=== PATIENT | male | born 1990 | race Caucasian/White ===

== ENCOUNTER 2023-08-11 16:10 | Emergency (ER) | payer OTHER, SELFPAY ==
[2023-08-11 16:14] VITALS: BP 119/80; PULSE 100; RESP 18; TEMP 36.6; O2SAT 100; BMI 19.0
--- NOTE | 2023-08-11 16:27 | ED.ABDPAIN ---
HPI - Abdominal Pain General Time Seen by Provider: 16:28 Date Seen: 08/11/23 Chief Complaint: Abdominal Pain Stated Complaint: Lower bowel obstruction-had before Time Seen by Provider: 08/11/23 16:22 Source: patient and RN notes reviewed Mode of arrival: ambulatory Limitations: no limitations History of Present Illness HPI narrative: This 33-year-old male is ambulatory into the ED with concern of a recurrent bowel obstruction. He about 2 weeks ago had severe sudden onset left lower quadrant pain that almost dropped him to his knees. He has had some intermittent pain in the last 2 weeks. Since about Saturday night now, has had more dull pain that is in the left lower quadrant. Last bowel movement was yesterday, had 2 bowel movements which is not typical. Passing minimal flatus. Has been more on a clear liquid diet today, no nausea or vomiting. He has been able to eat and drink, has more forced himself to do so as he was feeling weak/lightheaded. [place] more bloated yesterday, has noted active bowel sounds. He has had a history of recurrent bowel obstructions, did end up having an exploratory laparoscopy on 08/23/2016. This was done for history of 4 prior episodes of recurrent bowel obstructions. They did the lysis of adhesions and incidental appendectomy. He had prominent peritoneal folds associated with peritoneum with medial umbilical ligament/obliterated umbilical arteries. He does not feel he needs anything for pain management at this time. Is thinking he does need CT imaging. MD elicited complaint: abdominal pain Related Data Home Medications Medication Instructions Recorded Confirmed No Known Home Medications 08/11/23 08/11/23 Allergies Allergy/AdvReac Type Severity Reaction Status Date / Time No Known Drug Allergies Allergy Verified 07/11/23 17:30 PFSH [facility] Social History Smoking Status: Never smoker Do you use any of these nicotine containing products: None How often do you have a drink containing alcohol: monthly or less AUDIT-C Alcohol total score: 1 Non-prescribed substance use: denies use Exam Const: Vital Signs, click to edit/add: Vital Signs - 24 hr 08/11/23 16:14 Temperature 97.8 F Pulse Rate [Right Pulse Oximeter] 100 Respiratory Rate 18 Blood Pressure [Ri ght Upper Arm] 119/80 Pulse Oximetry 100 Oxygen Delivery Me thod Room Air [place] is alert, interactive, no apparent distress. Very pleasant 33-year-old male. Ambulatory in the ER of his own accord, very slender frame. Sclera clear, symmetrical facial function, speech normal. Lungs clear, good air entry, no wheezing or crackles. CV regular, slightly fast come no murmur, normal S1-S2, no S3-S4. Abdomen is flat, nondistended, initially had almost what sounded like a tatum of bowel sounds briefly when I 1st but the stethoscope on but then really hypoactive bowel sounds after that. Abdomen is actually tender just right of suprapubic area, no masses noted, no rebound or guarding, nontender elsewhere. Documenting provider has reviewed patient's vital signs: yes Course Course ED Course: Will obtain IV access, get CT abdomen pelvis with IV contrast. Will get full complement of labs including urine. This certainly could be recurrent bowel obstruction, consideration for bili is/gastroenteritis, other abdominal etiologies which will be further elucidated by labs and CT imaging. Reevaluation(s) Time of Reevaluation #1: 17:42 Reevaluation #1: Up did check on him, he still does not need anything for pain. Reviewed his labs are normal. We are waiting the radiology over-read of his CT. I question area of bowel that is lower in the abdomen but really need to await the radiologist's over-read. Time of Reevaluation #2: 18:23 Reevaluation #2: Reviewed normal CT report with patient, provided him a copy. At this point, we will finish IV fluids and discharge for ongoing outpatient observation. We discussed return if he has increasing abdominal pain, is not having stool and flatus past within the next 24 hours or if he develops vomiting. Vital Signs Vital signs: Initial Vital Signs Temperature 97.8 F 08/11/23 16:14 Temperature Source Temporal Artery Scan 08/11/23 16:14 Pulse Rate 100 08/11/23 16:14 Respiratory Rate 18 08/11/23 16:14 Blood Pressure 119/80 08/11/23 16:14 Blood Pressure Mean 93 08/11/23 16:14 Blood Pressure Position Sitting 08/11/23 16:14 Pulse Oximetry 100 08/11/23 16:14 Oxygen Delivery Method Room Air 08/11/23 16:14 Vital Signs Temperature 97.8 F 08/11/23 16:14 Pulse Rate 100 08/11/23 16:14 Respiratory Rate 18 08/11/23 16:14 Blood Pressure 119/80 08/11/23 16:14 Pulse Oximetry 100 08/11/23 16:14 Oxygen Delivery Method Room Air 08/11/23 16:14 Temperature 97.8 F 08/11/23 16:14 Pulse Rate 100 08/11/23 16:14 Respiratory Rate 18 08/11/23 16:14 Blood Pressure 119/80 08/11/23 16:14 Pulse Oximetry 100 08/11/23 16:14 Oxygen Delivery Method Room Air 08/11/23 16:14 Medications Administered Medications: Discontinued Medications Generic Name Dose Route Start Last Admin Trade Name Freq PRN Reason Stop Dose Admin Sodium Chloride 1,000 mls @ 500 mls/hr 08/11/23 16:42 08/11/23 19:00 0.9 % Sodium Chloride 1000 Ml IV 08/11/23 18:41 Infused .Q2H RENEA Infusion MDM - Abdominal Pain Lab Data Attestation: I reviewed the patient's lab results. Labs: Lab Results 08/11/23 08/11/23 Range/Units 16:49 16:58 WBC 5.88 (4.50-11.00) K/uL RBC 5.76 (4.30-5.90) m/uL Hgb 16.3 (13.5-17.5) gm/dL Hct 49.2 (37.0-53.0) % MCV 85 (80-100) fL MCH 28 (26-34) pg MCHC 33 (32-36) gm/dL RDW Coeff of Ga 12.8 (11.5-15.5) % Plt Count 240 (140-440) K/uL Neut % (Auto) 53.1 (42.0-72.0) % Lymph % (Auto) 36.4 (20-44) % [place] % (Auto) 9.0 (0.0-11.0) % Eos % (Auto) 0.3 (0.0-7.0) % Baso % (Auto) 0.5 (0.0-3.0) % Neut # (Auto) 3.12 (1.7-7.0) K/uL Lymph # (Auto) 2.14 (0.90-2.90) K/uL [place] # (Auto) 0.50 (0.00-0.90) K/UL Eos # (Auto) 0.02 (0.00-0.50) K/uL Baso # (Auto) 0.03 (0.00-0.30) K/uL Abs Immat Gran (auto) 0.04 (0.00-0.30) K/uL Imm/Tot Granulo (auto) 0.7 % Sodium 138 (135-149) mmol/L Potassium 4.1 (3.6-5.1) mmol/L Chloride 102 (96-114) mmol/L Carbon Dioxide 27 (20-32) mmol/L Anion Gap 9 (7-15) mEq/L BUN 18 (5-24) mg/dL Creatinine 1.1 (0.5-1.5) mg/dL Estimated Creat Clear 87.40 Estimated GFR 92 ml/min Glucose 99 (60-115) mg/dL Lactate 0.9 (0.5-1.9) mmol/L Calcium 9.4 (8.4-10.6) mg/dL Total Bilirubin 0.5 (0.1-1.5) mg/dL AST 27 (12-35) U/L ALT 24 (4-50) U/L Alkaline Phosphatase 63 (40-150) U/L C-Reactive Protein < 0.5 L (0.5-1.0) mg/dL Total Protein 8.0 (6.0-8.3) g/dL Albumin 4.8 (3.3-5.0) g/dL Urine Color Yellow (Yellow) Urine Appearance Clear (Clear) Urine pH 7.0 (5.0-8.5) Ur Specific [place] 1.020 (1.000-1.030) Urine Protein Negative (Negative) Urine Glucose (UA) Negative (Negative) Urine Ketones Negative (Negative) Urine Blood Negative (Negative) Urine Nitrite Negative (Negative) Urine Bilirubin Negative (Negative) Urine Urobilinogen 0.2 (0.2-1.0) Ur Leukocyte Esterase Negative (Negative) Urine RBC 0-2 (0-2) Urine WBC 0-2 (0-5) Ur Squamous Epith Cells Few (None-Few) Urine Bacteria None (None) Imaging Data CT scan - abdomen: Attestation: I have reviewed the pertinent imaging results. Radiologist's impression: Patient: JAGDISH BAHENA Facility:?[facility] Patient ID:?[id number] Site Patient ID:?[id number]. Site :?[id number] Study:?CT Abdomen/Pelvis w/ 69cc [id number] 5:47:16 PM Ordering Physician:Bhargav Lee Final Report: INDICATION: Left lower quadrant pain. History of bowel obstruction. TECHNIQUE: CT abdomen and pelvis acquired with 69 cc Isovue 370 IV contrast. COMPARISON: 08/23/2016 and 05/29/2014. FINDINGS: Lower chest: Unremarkable. Liver: Unremarkable. Normal in size and attenuation. No suspicious masses. Gallbladder and bile ducts: Unremarkable. No stones or inflammation. No biliary dilatation. Pancreas: Unremarkable. No mass or inflammation. Spleen: Unremarkable. Normal in size. No masses. Adrenal glands: Unremarkable. No nodules. Kidneys: Unremarkable. No suspicious masses, stones, or hydronephrosis. GI tract: Nondilated bowel. No bowel wall thickening. No acute inflammation. A linear hyper attenuating focus consistent with suture material is seen along the apex of the cecum consistent with a prior appendectomy. Please correlate with the patient`s clinical history. Vasculature: Abdominal aorta is normal in caliber. Mesenteric arteries are patent. Lymph nodes: No lymphadenopathy. Peritoneum/Abdominal Wall: Unremarkable. No sign of mass or infiltration. No free air or significant free fluid. Pelvis: Unremarkable. Bones: Unremarkable for age. Incidental unchanged bone islands in the left innominate bone and left femoral head. IMPRESSION: No acute findings. Please note that all CT scans at this facility use dose modulation, iterative reconstruction, and/or weight-based dosing when appropriate to reduce radiation dose to as low as reasonably achievable. Dictated by Nas Feng MD @ 08/11/2023 5:53:24 PM (Electronic Signature) Discharge Plan Discharge Clinical Impression: Abdominal pain Patient Disposition: Home, Self-Care Condition: Stable Instructions: Acute Abdominal Pain (ED) Additional Instructions: Resume normal diet and drink adequate fluids. If you are experiencing increasing abdominal pain, if it is associated with fever or vomiting, if you are not passing gas or stool within the next 24 hours, do recommend re-evaluation. CT imaging and labs were all normal here today. Activity Level: Activity as Tolerated Discharge Diet: Regular Prescriptions: No Action No Known Home Medications Follow Up/Referrals: Jaciel Hwang MD [Primary Care Provider] - Stand Alone Forms: [place] Info Instructions
--- NOTE | 2023-08-11 16:35 | CRLHL7_ITS ---
For Patients: As a result of the Century Cures Act, medical imaging exams and procedure reports are released immediately into your electronic medical record. You may view this report before your referring provider. If you have questions, please contact your health care provider. INDICATION: Left lower quadrant pain. History of bowel obstruction. TECHNIQUE: CT abdomen and pelvis acquired with 69 cc Isovue 370 IV contrast. COMPARISON: 08/23/2016 and 05/29/2014. FINDINGS: Lower chest: Unremarkable. Liver: Unremarkable. Normal in size and attenuation. No suspicious masses. Gallbladder and bile ducts: Unremarkable. No stones or inflammation. No biliary dilatation. Pancreas: Unremarkable. No mass or inflammation. Spleen: Unremarkable. Normal in size. No masses. Adrenal glands: Unremarkable. No nodules. Kidneys: Unremarkable. No suspicious masses, stones, or hydronephrosis. GI tract: Nondilated bowel. No bowel wall thickening. No acute inflammation. A linear hyper attenuating focus consistent with suture material is seen along the apex of the cecum consistent with a prior appendectomy. Please correlate with the patient`s clinical history. Vasculature: Abdominal aorta is normal in caliber. Mesenteric arteries are patent. Lymph nodes: No lymphadenopathy. Peritoneum/Abdominal Wall: Unremarkable. No sign of mass or infiltration. No free air or significant free fluid. Pelvis: Unremarkable. Bones: Unremarkable for age. Incidental unchanged bone islands in the left innominate bone and left femoral head. IMPRESSION: No acute findings. Please note that all CT scans at this facility use dose modulation, iterative reconstruction, and/or weight-based dosing when appropriate to reduce radiation dose to as low as reasonably achievable. Dictated by Nas Feng MD @ 08/11/2023 5:53:24 PM (Electronically Signed)
[2023-08-11 16:54] LABS: Appearance Urine Clear (Clear); Bilirubin Urine Negative (Negative); Blood Urine Negative (Negative); Color Urine Yellow (Yellow); Glucose Urine Negative (Negative); Ketones Urine Negative (Negative); Leukocyte Esterase Urine Negative (Negative); Nitrite Urine Negative (Negative); Protein Urine Negative (Negative); Urobilinogen Urine 0.2 (0.2-1.0)
[2023-08-11 17:02] LABS: RBC Urine 0-2 (0-2); Squamous Epithelial Cell Urine Few (None-Few); WBC Urine 0-2 (0-5)
[2023-08-11 17:08] LABS: Lactate* 0.9 mmol/L (0.5-1.9)
[2023-08-11 17:09] LABS: Basophils Absolute Auto 0.03 K/uL (0.00-0.30); Basophils Percent Auto 0.5 % (0.0-3.0); Eosinophils Absolute Auto 0.02 K/uL (0.00-0.50); Eosinophils Percent Auto 0.3 % (0.0-7.0); Hematocrit 49.2 % (37.0-53.0); Hemoglobin* 16.3 gm/dL (13.5-17.5); Immature Granulocytes Abs Auto 0.04 K/uL (0.00-0.30); Immature Granulocytes Pct Auto 0.7 %; Lymphocytes Absolute Auto 2.14 K/uL (0.90-2.90); Lymphocytes Percent Auto 36.4 % (20-44); Mean Corpuscular HGB Conc 33 gm/dL (32-36); Mean Corpuscular Hemoglobin 28 pg (26-34); Mean Corpuscular Volume 85 fL (80-100); Neutrophils Absolute Auto 3.12 K/uL (1.7-7.0); Neutrophils Percent Auto 53.1 % (42.0-72.0); Platelet Count* 240 K/uL (140-440); RDW Coefficient of Variation % 12.8 % (11.5-15.5); Red Blood Count 5.76 m/uL (4.30-5.90); White Blood Count* 5.88 K/uL (4.50-11.00)
[2023-08-11] MEDS: 0.9 % SODIUM CHLORIDE 1000 ml 1,000 ML 500 ML IV (17:09)
[2023-08-11 17:14] LABS: Slide Review Reflex No
[2023-08-11 17:23] LABS: Albumin* 4.8 g/dL (3.3-5.0); Chloride* 102 mmol/L (96-114); Sodium* 138 mmol/L (135-149)
[2023-08-11 17:26] LABS: Alkaline Phosphatase* 63 U/L (40-150); Anion Gap 9 mEq/L (7-15); Aspartate Amino Transferase* 27 U/L (12-35); Bilirubin Total* 0.5 mg/dL (0.1-1.5); Carbon Dioxide* 27 mmol/L (20-32); Creatinine* 1.1 mg/dL (0.5-1.5); Estimated Glomerular Filt Rate 92 ml/min; Potassium* 4.1 mmol/L (3.6-5.1)
[2023-08-11 17:27] LABS: Alanine Aminotransferase* 24 U/L (4-50); Blood Urea Nitrogen* 18 mg/dL (5-24); Calcium* 9.4 mg/dL (8.4-10.6); Glucose* 99 mg/dL (60-115)
[2023-08-11 17:30] LABS: C Reactive Protein* < 0.5 mg/dL (0.5-1.0)
== END 2023-08-11 19:05 | disposition home or self-care (01) ==
PROVIDERS: Emergency Provider Family Medicine; PCP Internal Medicine
DX: R10.9 Unspecified abdominal pain (principal)
CPT/HCPCS: 36415; 74177; 80053; 81001; 83605; 85025; 86140; 96360; 99284; 99285; J7030; Q9967

== ENCOUNTER 2023-08-15 17:15 | Emergency (ER) | payer OTHER, SELFPAY ==
[2023-08-15 17:23] VITALS: BP 141/82; PULSE 86; RESP 16; TEMP 36.4; O2SAT 98; BMI 19.0
--- NOTE | 2023-08-15 17:56 | ED.ABDPAIN ---
HPI - Abdominal Pain General Chief Complaint: Abdominal Pain Stated Complaint: GI Pain Time Seen by Provider: 08/15/23 17:22 History of Present Illness HPI narrative: This 33-year-old male comes in reporting abdominal pain over the past fiber 6 days. He states that he has a history of bowel obstruction and has had his appendix removed. He was seen 4 days ago here for the same abdominal pain and at that time had a CT scan with IV contrast. Labs and imaging studies returned with reassuring findings. The patient continues to have pain that is pretty steady that he states is 1 to 2/10 in severity. He also gets some very brief cramps increasing to 5/10 in severity and lasting about a minute or so. He denies having any fever, dysuria, nausea, vomiting, or blood in the toilet. He is not taking any medications. Related Data Previous Rx's Medication Instructions Recorded ketorolac 10 mg tablet 10 mg PO Q8H 5 days #15 tabs 08/15/23 pantoprazole 20 mg tablet,delayed 20 mg PO DAILY #20 tabs 08/15/23 release (Protonix) Allergies Allergy/AdvReac Type Severity Reaction Status Date / Time bee venom protein (honey bee) Allergy Intermediate Swelling Verified 08/15/23 17:19 Review of Systems Status of ROS Reports: 10 or more systems reviewed and unremarkable except as noted in History and below Narrative Constitutional: No fevers, no weight gain or loss. Eyes: No discharge. No vision changes. HENT: No congestion, no sore throat, no ear pain. Cardiovascular: No chest pain, no palpitations. Respiratory: No shortness of breath, no wheezes, no cough. Gastrointestinal: No vomiting, no diarrhea. Abdominal pain as described above. Genitourinary: No dysuria, no hematuria. Musculoskeletal: Normal range of motion. Skin: No rashes, no pruritis. Neurological: No dizziness, weakness, sensory change, speech change. Endo/Heme/Allergies: No bruising or bleeding. No polydipsia. Pysch: no suicidality, no anxiety, no insomnia. All other systems reviewed and are negative. [facility] Medical History (Updated 08/15/23 @ 18:00 by Jonh Leo MD) Pleurisy (10/31/20) ?R09.1 - Pleurisy (ICD-10) Intermittent small bowel obstruction ?K56.609 - Unspecified intestinal obstruction, unspecified as to partial versus complete obstruction (ICD-10) Surgical History (Updated 08/15/23 @ 14:49 by Meche Alvarenga) History of appendectomy ?Z90.49 - Acquired absence of other specified parts of digestive tract (ICD-10) History of exploratory laparotomy (09/03/16) ?Z98.890 - Other specified postprocedural states (ICD-10) Social History Smoking Status: Never smoker Do you use any of these nicotine containing products: None How often do you have a drink containing alcohol: monthly or less AUDIT-C Alcohol total score: 1 Non-prescribed substance use: denies use Exam Narrative: Exam Narrative: Constitutional: Well-developed, well-nourished, no acute distress. HEENT: Normocephalic, atraumatic. Neck: Normal range of motion. Nontender. Supple. Heart: Regular. No murmurs. Normal rate. Intact distal pulses. Lungs: Clear to auscultation. No chest discomfort. No wheezes, rhonchi, or rales. Abdomen: Normal bowel sounds. Nontender. No rebound tenderness. Genitalia: Deferred. Back: No midline tenderness. Normal range of motion. Extremities: Normal range of motion. No injury. Skin: Intact. No rash. Warm. No erythema or pallor. Neurologic: No altered sensation. No weakness. Alert and oriented. Psychiatric: No suicidality. No anxiety or depression. No insomnia. Nursing notes and vitals signs are reviewed. Const: Vital Signs, click to edit/add: Vital Signs - 24 hr 08/15/23 17:23 Temperature 97.6 F Pulse Rate [Pulse Oximeter] 86 Respiratory Rate 16 Blood Pressure [Ri ght Upper Arm] 141/82 H Pulse Oximetry 98 Oxygen Delivery Me thod Room Air Course Vital Signs Vital signs: Initial Vital Signs Temperature 97.6 F 08/15/23 17:23 Temperature Source Temporal Artery Scan 08/15/23 17:23 Pulse Rate 86 08/15/23 17:23 Pulse Rhythm Regular 08/15/23 17:23 Pulse Strength 3+ Normal 08/15/23 17:23 Respiratory Rate 16 08/15/23 17:23 Blood Pressure 141/82 H 08/15/23 17:23 Blood Pressure Mean 101 08/15/23 17:23 Blood Pressure Position Sitting 08/15/23 17:23 Pulse Oximetry 98 08/15/23 17:23 Oxygen Delivery Method Room Air 08/15/23 17:23 Vital Signs Temperature 97.6 F 08/15/23 17:23 Pulse Rate 86 08/15/23 17:23 Respiratory Rate 16 08/15/23 17:23 Blood Pressure 141/82 H 08/15/23 17:23 Pulse Oximetry 98 08/15/23 17:23 Oxygen Delivery Method Room Air 08/15/23 17:23 Temperature 97.6 F 08/15/23 17:23 Pulse Rate 86 08/15/23 17:23 Respiratory Rate 16 08/15/23 17:23 Blood Pressure 141/82 H 08/15/23 17:23 Pulse Oximetry 98 08/15/23 17:23 Oxygen Delivery Method Room Air 08/15/23 17:23 MDM - Abdominal Pain MDM Narrative Medical decision making narrative: This patient comes in reporting abdominal discomfort as described above. He arrives with normal vital signs and his exam is also reassuring. I did review his CT results from 4 days ago. I did discuss repeating lab and imaging studies that these were declined in a process of shared decision making. The patient did receive a prescription for Protonix and Toradol. I advised him to follow-up with gastroenterology clinic if not improving or worsening. I did describe in detail signs or symptoms that would indicate a need for returning here for further evaluation and treatment. Discharge Plan Discharge Clinical Impression: Abdominal pain Patient Disposition: Home, Self-Care Condition: Stable Additional Instructions: Take medication as needed and indicated. Follow up with Gastroenterology Clinic if not improving. Call for appointment by dialing [phone]. Return if worsening symptoms happen. Prescriptions: New ketorolac 10 mg tablet 10 mg PO Q8H 5 Days Qty: 15 0RF pantoprazole [Protonix] 20 mg tablet,delayed release (DR/EC) 20 mg PO DAILY Qty: 20 2RF Follow Up/Referrals: Provider,Not a Local [Primary Care Provider] - Stand Alone Forms: [employer] Info Instructions
== END 2023-08-15 18:28 | disposition home or self-care (01) ==
LOC: ED 18:21
PROVIDERS: Emergency Provider Emergency Medicine Emergency Medical Services
DX: R10.9 Unspecified abdominal pain (principal)
CPT/HCPCS: 99283; 99284

== ENCOUNTER 2024-03-27 10:07 | Emergency (ER) | payer OTHER, SELFPAY ==
[2024-03-27 10:35] VITALS: BP 119/89; PULSE 94; RESP 16; TEMP 36.7; O2SAT 100
[2024-03-27 10:43] LABS: Carboxyhemoglobin* 4.3 % (0.0-5.0)
--- NOTE | 2024-03-27 11:00 | ED_ITS ---
HPI - General Adult General Chief complaint: Chemical Exposure Stated complaint: Carbon monoxide poisoning Time Seen by Provider: 03/27/24 10:43 Source: patient Mode of arrival: ambulatory Limitations: no limitations History of Present Illness HPI narrative: 34-year-old male, generally healthy, presenting today with nausea and headache after exposure to carbon monoxide. Patient was at work at the [employer] today when he was the 1 who discovered a car running in the garage, had apparently been running for most of the night. He denies vomiting, confusion or altered mental status. Not short of breath. Related Data Home Medications ?Medication ?Instructions ?Recorded ?Confirmed No Known Home Medications 03/27/24 03/27/24 Allergies Allergy/AdvReac Type Severity Reaction Status Date / Time bee venom protein (honey bee) Allergy Intermediate Swelling Verified 03/26/24 15:01 Review of Systems Status of ROS: Reports: 10 or more systems reviewed and unremarkable except as noted in History and below PFSH [facility] Medical History IBS (irritable bowel syndrome) ?K58.9 - Irritable bowel syndrome without diarrhea (ICD-10) Pleurisy (10/31/20) ?R09.1 - Pleurisy (ICD-10) Intermittent small bowel obstruction ?K56.609 - Unspecified intestinal obstruction, unspecified as to partial versus complete obstruction (ICD-10) Surgical History History of appendectomy ?Z90.49 - Acquired absence of other specified parts of digestive tract (ICD- 10) History of exploratory laparotomy (09/03/16) ?Z98.890 - Other specified postprocedural states (ICD-10) Social History What is your current living situation?: I presently have a place to live Problems where you live: no known problems In the past 12 months, utilities in danger of being shut off: no In past 12 months, lack of transportation kept you from medical appts, meetings, work, or getting things needed for daily living: no How hard is it for you to pay for the very basics like food, housing, medical care, and heating: not very hard In the past 12 mos, have been you worried that your food would run out before you had money to buy more?: never true In the past 12 mos, the food you bought just didn't last and you didn't have money to buy more?: never true Smoking Status: Never smoker Do you use any of these nicotine containing products: None Second hand tobacco smoke exposure: No How often do you have a drink containing alcohol: monthly or less AUDIT-C Alcohol total score: 1 Non-prescribed substance use: denies use How often does anyone, including family, friends and others, physically hurt you : never How often does anyone, including family, friends and others, insult or talk down to you: never How often does anyone, including family, friends and others, threaten you with harm: never How often does anyone, including family, friends and others, scream or curse at you: never Little interest or pleasure in doing things: not at all Feeling down, depressed, or hopeless: not at all Exam Narrative: Exam Narrative: Well-nourished well-developed patient in no acute distress. Alert and oriented. Answers questions appropriately. Mood and affect are appropriate. Thoughts are goal oriented and rational. No tangential or magical thinking noted. Patient speaks in full sentences without needing to catch his breath. HEENT: Normocephalic atraumatic. Pupils are equally round reactive to light. Extraocular muscles are intact. Conjunctivae are moist without any icterus noted. Moist mucous membranes. Cardiovascular: Heart is regular rate and rhythm S1 and S2 are present without any murmurs. Lungs: Clear to auscultation bilaterally no wheezes rhonchi or rales are appreciated. Patient takes deep breaths without any discomfort. Skin: Well perfused without any obvious rashes. Const: Vital Signs, click to edit/add: Vital Signs - 24 hr 03/27/24 10:35 03/27/24 11:03 Temperature 98.1 F Pulse Rate [Pulse Oximeter] 94 Respiratory Rate 16 Blood Pressure [Le ft Upper Arm] 119/89 Pulse Oximetry 100 100 Oxygen Delivery Me thod Room Air Non Rebreather Mas k Oxygen Flow Rate 15 Course Course ED Course: Patient placed on a non-rebreather for 1 hour. [place] better after treatment. Vital Signs Vital signs: Initial Vital Signs Temperature 98.1 F 03/27/24 10:35 Temperature Source Temporal Artery Scan 03/27/24 10:35 Pulse Rate 94 03/27/24 10:35 Respiratory Rate 16 03/27/24 10:35 Blood Pressure 119/89 03/27/24 10:35 Blood Pressure Mean 99 03/27/24 10:35 Blood Pressure Position Sitting 03/27/24 10:35 Pulse Oximetry 100 03/27/24 10:35 Oxygen Delivery Method Room Air 03/27/24 10:35 Vital Signs Temperature 98.1 F 03/27/24 10:35 Pulse Rate 94 03/27/24 10:35 Respiratory Rate 16 03/27/24 10:35 Blood Pressure 119/89 03/27/24 10:35 Pulse Oximetry 100 03/27/24 10:35 Oxygen Delivery Method Room Air 03/27/24 10:35 Temperature 98.1 F 03/27/24 10:35 Pulse Rate 94 03/27/24 10:35 Respiratory Rate 16 03/27/24 10:35 Blood Pressure 119/89 03/27/24 10:35 Pulse Oximetry 100 03/27/24 11:03 Oxygen Delivery Method Non Rebreather Mask 03/27/24 11:03 Oxygen Flow Rate 15 03/27/24 11:03 Medical Decision Making MDM Narrative Medical decision making narrative: Carbon monoxide exposure. Treated per above. Lab Data Lab results reviewed: Yes I reviewed the patient's lab results Labs: Lab Results 03/27/24 Range/Units 10:40 Carboxyhemoglobin 4.3 (0.0-5.0) % Discharge Plan Discharge Clinical Impression: Accidental exposure to carbon monoxide Patient Disposition: Home, Self-Care Condition: Improved Prescriptions: No Action No Known Home Medications Follow Up/Referrals: Jaciel Hwang MD [Primary Care Provider] - Stand Alone Forms: [facility] Info Instructions
[2024-03-27 11:03] VITALS: O2SAT 100
== END 2024-03-27 12:24 | disposition home or self-care (01) ==
PROVIDERS: Emergency Provider Family Medicine; PCP Internal Medicine
DX: R11.0 Nausea (principal); Z77.29 Contact with and (suspected) exposure to other hazardous substances
CPT/HCPCS: 82375; 99282; 99283; 99284

== ENCOUNTER 2024-07-01 20:18 | Inpatient (IN) | payer OTHER, SELFPAY ==
[2024-07-01 20:21] VITALS: BP 118/73; PULSE 104; RESP 16; TEMP 37.1; O2SAT 97; BMI 19.0
--- NOTE | 2024-07-01 20:38 | CRLHL7_ITS ---
For Patients: As a result of the Century Cures Act, medical imaging exams and procedure reports are released immediately into your electronic medical record. You may view this report before your referring provider. If you have questions, please contact your health care provider. Indication: Abdominal pain, nausea, history of small-bowel obstruction Technique: CT through the abdomen and pelvis following 69 mL Isovue 370 IV contrast Comparison: CT abdomen pelvis performed 08/11/2023 Findings: Lower chest: No acute abnormality appreciated. Hepatobiliary: No significant parenchymal abnormality is appreciated. Spleen: Unremarkable. Pancreas: No acute abnormality appreciated. Adrenal glands: No acute abnormality appreciated. Kidneys: No significant parenchymal abnormality appreciated. No visualized calculi. No hydronephrosis. Bowel: Dilated loops of small bowel noted. No focal perienteric or pericolonic stranding is appreciated. Small bowel measures up to 3.3 centimeters. There is overall gradual decompression of small bowel with no definite focal transition point identified. Vascular: No acute abnormality appreciated. Lymph nodes: No gross lymphadenopathy. Peritoneum: Small volume free fluid. : No acute abnormality appreciated. Soft tissues: No acute abnormality appreciated. Bones: No acute fracture. No lytic or blastic lesion. Impression: Dilated small bowel measuring up to 3.3 centimeters, though with overall gradual decompression of small bowel and no focal transition point identified. Small volume fluid noted layering in the pelvis. Differential includes enteritis with ileus versus early or incomplete obstruction. Please note that all CT scans at this facility use dose modulation, iterative reconstruction, and/or weight-based dosing when appropriate to reduce radiation dose to as low as reasonably achievable. Dictated by Christiano Higgins MD @ 07/01/2024 10:26:11 PM (Electronically Signed)
--- NOTE | 2024-07-01 20:40 | ED.GENADULT ---
HPI - General Adult General Date Seen: 07/01/24 <Sonido Kurtz MD - Last Filed: 07/01/24 20:52> Chief complaint: Abdominal Pain <Sonido Kurtz MD - Last Filed: 07/01/24 20:52> Stated complaint: Abdominal pain <Sonido Kurtz MD - Last Filed: 07/01/24 20:52> Time Seen by Provider: 07/01/24 20:38 <Sonido Kurtz MD - Last Filed: 07/01/24 20:52> History of Present Illness HPI narrative: This is a 34-year-old male with a history of 2 previous small bowel obstructions, with 1 previous surgery for bowel obstruction and incidental appendectomy during that operation. 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 and also a structurally abnormal stomach that is ?shaped like a wind sock. ? He also has a history of irritable bowel syndrome. He is otherwise healthy. No other abdominal surgeries. He started having symptoms of abdominal pain this afternoon. He does not recall any unusual activity or injury or any particular trigger for the pain. It feels like cramping it comes and goes and intense waves. The pain is predominantly in the left side and left lower quadrant but radiates from there into the rest of the abdomen and for the right side. Sometimes it radiates into his back affecting his entire low back and both flanks but not into 1 flank or the other. He did have 1 normal bowel movement today. Also 1 soft bowel movement. No bloody or mucousy stool. He is not vomiting. He has no fever. No known sick exposures. He tried taking his regular medications for IBS, dicyclomine, but it has not helped his pain. He is concerned that he may have another bowel obstruction. <Sonido Kurtz MD - Last Filed: 07/01/24 20:52> Related Data Home medications: Home Medications ?Medication ?Instructions ?Recorded ?Confirmed dicyclomine 10 mg capsule 10 mg PO QID PRN abdominal pain 07/01/24 07/01/24 <Sonido Kurtz MD - Last Filed: 07/01/24 20:52> Allergies/adverse reactions: Allergies Allergy/AdvReac Type Severity Reaction Status Date / Time bee venom protein (honey bee) Allergy Intermediate Swelling Verified 07/01/24 20:26 <Sonido Kurtz MD - Last Filed: 07/01/24 20:52> [facility] Medical History: Medical History IBS (irritable bowel syndrome) ?K58.9 - Irritable bowel syndrome without diarrhea (ICD-10) Pleurisy (10/31/20) ?R09.1 - Pleurisy (ICD-10) Intermittent small bowel obstruction ?K56.609 - Unspecified intestinal obstruction, unspecified as to partial versus complete obstruction (ICD-10) <Sonido Kurtz MD - Last Filed: 07/01/24 20:52> Surgical History: Surgical History History of appendectomy ?Z90.49 - Acquired absence of other specified parts of digestive tract (ICD-10) History of exploratory laparotomy (09/03/16) ?Z98.890 - Other specified postprocedural states (ICD-10) <Sonido Kurtz MD - Last Filed: 07/01/24 20:52> Social History: Social History What is your current living situation?: I presently have a place to live Problems where you live: no known problems In the past 12 months, utilities in danger of being shut off: no In past 12 months, lack of transportation kept you from medical appts, meetings, work, or getting things needed for daily living: no How hard is it for you to pay for the very basics like food, housing, medical care, and heating: not very hard In the past 12 mos, have been you worried that your food would run out before you had money to buy more?: never true In the past 12 mos, the food you bought just didn't last and you didn't have money to buy more?: never true Smoking Status: Never smoker Do you use any of these nicotine containing products: None Second hand tobacco smoke exposure: No How often do you have a drink containing alcohol: monthly or less AUDIT-C Alcohol total score: 1 Non-prescribed substance use: denies use How often does anyone, including family, friends and others, physically hurt you: never How often does anyone, including family, friends and others, insult or talk down to you: never How often does anyone, including family, friends and others, threaten you with harm: never How often does anyone, including family, friends and others, scream or curse at you: never <Sonido Kurtz MD - Last Filed: 07/01/24 20:52> Exam Narrative: Exam Narrative: Constitutional: Appears well-developed and well-nourished. Alert. Conversant. 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 Uncomfortable but Non toxic. HENT: Head: Atraumatic. Nose: Nose normal. Mouth/Throat: Oral mucosa is clear and moist. no trismus. Pharynx normal. Tonsils symmetric. No tonsillar enlargement, erythema, or exudate. Eyes: Conjunctivae normal. EOM normal. Pupils equal, round, and reactive to light. No scleral icterus. Neck: Normal range of motion. Neck supple. No tracheal deviation present. Cardiovascular: Normal rate, regular rhythm. No gallop. No friction rub. No murmur heard. Symmetric radial artery pulses Pulmonary/Chest: Effort normal. No stridor. No respiratory distress. No wheezes. No rales. No rhonchi . No tenderness. Abdominal: Soft. Bowel sounds normal. No distension. Non tympanic. No mass. Okay with the diffuse tenderness, more with maximal left lower quadrant tenderness. No rebound. No guarding. No CVA tenderness. Musculoskeletal: RUE: Normal range of motion. No tenderness. No deformity LUE: Normal range of motion. No tenderness. No deformity RLE: Normal range of motion. No edema. No tenderness. No deformity LLE: Normal range of motion. No edema. No tenderness. No deformity Neurological: Alert and oriented to person, place, and time. Normal strength. CN II-VII intact. No sensory deficit. GCS eye subscore is 4. GCS verbal subscore is 5. GCS motor subscore is 6. Normal coordination Skin: Skin is warm and dry. No rash noted. No pallor. Normal capillary refill. Psychiatric: Normal mood. Normal affect. <Sonido Kurtz MD - Last Filed: 07/01/24 20:52> Const: Vital Signs, click to edit/add: Vital Signs - 24 hr 07/01/24 20:21 07/01/24 22:01 Temperature 98.8 F Pulse Rate [Pulse Oximeter] 104 H 90 Respiratory Rate 16 Blood Pressure [Ri ght Upper Arm] 118/73 119/84 Pulse Oximetry 97 98 Oxygen Delivery Me thod Room Air Room Air <Sonido Kurtz MD - Last Filed: 07/01/24 20:52> Vital Signs, click to edit/add: Vital Signs - 24 hr 07/01/24 20:21 07/01/24 22:01 Temperature 98.8 F Pulse Rate [Pulse Oximeter] 104 H 90 Respiratory Rate 16 Blood Pressure [Ri ght Upper Arm] 118/73 119/84 Pulse Oximetry 97 98 Oxygen Delivery Me thod Room Air Room Air <Jak Morin MD - Last Filed: 07/01/24 23:06> Course Reevaluation(s) Time of Reevaluation #1: 23:02 <Jak Morin MD - Last Filed: 07/01/24 23:06> Reevaluation #1: I spoke to from General surgery, she reviewed the CT scan, and the history. She recommends admission overnight, for small bowel obstruction NG suction, as there is quite a bit distension of the gastric area. IV fluids, consult to Hospital Medicine for admission. She will follow and see in the morning. I then discussed with the the patient and he was in agreement Once the tele hospitalist comes on at midnight I will call, for admission. <Jak Morin MD - Last Filed: 07/01/24 23:06> Vital Signs Vital signs: Initial Vital Signs Temperature 98.8 F 07/01/24 20:21 Temperature Source Temporal Artery Scan 07/01/24 20:21 Pulse Rate 104 H 07/01/24 20:21 Respiratory Rate 16 07/01/24 20:21 Blood Pressure 118/73 07/01/24 20:21 Blood Pressure Mean 88 07/01/24 20:21 Blood Pressure Position Sitting 07/01/24 20:21 Pulse Oximetry 97 07/01/24 20:21 Oxygen Delivery Method Room Air 07/01/24 20:21 Vital Signs Temperature 98.8 F 07/01/24 20:21 Pulse Rate 104 H 07/01/24 20:21 Respiratory Rate 16 07/01/24 20:21 Blood Pressure 118/73 07/01/24 20:21 Pulse Oximetry 97 07/01/24 20:21 Oxygen Delivery Method Room Air 07/01/24 20:21 Temperature 98.8 F 07/01/24 20:21 Pulse Rate 90 07/01/24 22:01 Respiratory Rate 16 07/01/24 20:21 Blood Pressure 119/84 07/01/24 22:01 Pulse Oximetry 98 07/01/24 22:01 Oxygen Delivery Method Room Air 07/01/24 22:01 <Sonido Kurtz MD - Last Filed: 07/01/24 20:52> Initial Vital Signs Temperature 98.8 F 07/01/24 20:21 Temperature Source Temporal Artery Scan 07/01/24 20:21 Pulse Rate 104 H 07/01/24 20:21 Respiratory Rate 16 07/01/24 20:21 Blood Pressure 118/73 07/01/24 20:21 Blood Pressure Mean 88 07/01/24 20:21 Blood Pressure Position Sitting 07/01/24 20:21 Pulse Oximetry 97 07/01/24 20:21 Oxygen Delivery Method Room Air 07/01/24 20:21 Vital Signs Temperature 98.8 F 07/01/24 20:21 Pulse Rate 104 H 07/01/24 20:21 Respiratory Rate 16 07/01/24 20:21 Blood Pressure 118/73 07/01/24 20:21 Pulse Oximetry 97 07/01/24 20:21 Oxygen Delivery Method Room Air 07/01/24 20:21 Temperature 98.8 F 07/01/24 20:21 Pulse Rate 90 07/01/24 22:01 Respiratory Rate 16 07/01/24 20:21 Blood Pressure 119/84 07/01/24 22:01 Pulse Oximetry 98 07/01/24 22:01 Oxygen Delivery Method Room Air 07/01/24 22:01 <Jak Morin MD - Last Filed: 07/01/24 23:06> Medications Administered Medications: Discontinued Medications Generic Name Dose Route Start Last Admin Trade Name Freq PRN Reason Stop Dose Admin Ketorolac Tromethamine 15 mg 07/01/24 20:39 07/01/24 20:55 Ketorolac 15 Mg/Ml Inj IVP 07/01/24 20:40 15 mg ONCE ONE Administration Ondansetron HCl 4 mg 07/01/24 20:39 07/01/24 20:55 Ondansetron 2 Mg/Ml Inj IVP 07/01/24 20:40 4 mg ONCE ONE Administration <Sonido Kurtz MD - Last Filed: 07/01/24 20:52> Discontinued Medications Generic Name Dose Route Start Last Admin Trade Name Yani PRN Reason Stop Dose Admin Ketorolac Tromethamine 15 mg 07/01/24 20:39 07/01/24 20:55 Ketorolac 15 Mg/Ml Inj IVP 07/01/24 20:40 15 mg ONCE ONE Administration Ondansetron HCl 4 mg 07/01/24 20:39 07/01/24 20:55 Ondansetron 2 Mg/Ml Inj IVP 07/01/24 20:40 4 mg ONCE ONE Administration <Jak Morin MD - Last Filed: 07/01/24 23:06> Medical Decision Making MDM Narrative Medical decision making narrative: 34-year-old male with a history of bowel obstructions as well as history of IBS presenting to the ER today with generalized abdominal pain but most intense in his left lower quadrant and crampy waves of pain beginning this afternoon. Patient is concerned about recurrent bowel obstruction. On exam he is quite tender but overall is not tympanic or distended. Differential would include early bowel obstruction versus is IBS or functional abdominal pain. Also consider other causes such as diverticulitis, left-sided colitis, perforation or abscess. Pain is more intense in the lower abdomen than upper but also consider pancreatitis, other causes of abdominal pain. I have ordered laboratory workup, CT scan for further evaluation. Patient is nauseous. Zofran ordered and he has done well with this in the past. He is also having pain. Toradol ordered. Were trying to avoid opiates the 3rd and potential side effects with that including nausea and sedation. Patient says he would prefer to avoid opiates if possible. Discussed with my partner, Dr. Morin who will follow-up on the lab work and CT imaging. If labs and CT are normal, patient may be able to discharge with supportive care. If they revealed abnormality, patient will be admitted or her disposition appropriately by Dr. Morin. <Sonido Kurtz MD - Last Filed: 07/01/24 20:52> Lab Data Lab results reviewed: Yes I reviewed the patient's lab results <Jak Morin MD - Last Filed: 07/01/24 23:06> Labs: Lab Results 07/01/24 07/01/24 07/01/24 Range/Units 20:48 21:15 22:42 WBC 11.78 H (4.50-11.00) K/uL RBC 6.05 H (4.30-5.90) m/uL Hgb 17.4 (13.5-17.5) gm/dL Hct 51.1 (37.0-53.0) % MCV 85 (80-100) fL MCH 29 (26-34) pg MCHC 34 (32-36) gm/dL RDW Coeff of Ga 12.5 (11.5-15.5) % Plt Count 222 (140-440) K/uL Neut % (Auto) 71.8 (42.0-72.0) % Lymph % (Auto) 19.0 L (20-44) % [place] % (Auto) 8.5 (0.0-11.0) % Eos % (Auto) 0.4 (0.0-7.0) % Baso % (Auto) 0.2 (0.0-3.0) % Neut # (Auto) 8.50 H (1.7-7.0) K/uL Lymph # (Auto) 2.20 (0.90-2.90) K/uL [place] # (Auto) 1.00 H (0.00-0.90) K/UL Eos # (Auto) 0.00 (0.00-0.50) K/uL Baso # (Auto) 0.00 (0.00-0.30) K/uL Abs Immat Gran (auto) 0.00 (0.00-0.30) K/uL Imm/Tot Granulo (auto) 0.1 % Sodium 139 (135-149) mmol/L Potassium 4.1 (3.6-5.1) mmol/L Chloride 101 (96-114) mmol/L Carbon Dioxide 29 (20-32) mmol/L Anion Gap 9 (7-15) mEq/L BUN 21 (5-24) mg/dL Creatinine 1.2 (0.5-1.5) mg/dL Estimated Creat Clear 79.38 Estimated GFR 82 ml/min Glucose 114 (60-115) mg/dL Lactate 1.3 (0.5-1.9) mmol/L Calcium 10.1 (8.4-10.6) mg/dL Total Bilirubin 0.3 (0.1-1.5) mg/dL AST 25 (12-35) U/L ALT 20 (4-50) U/L Alkaline Phosphatase 55 (40-150) U/L Total Protein 8.0 (6.0-8.3) g/dL Albumin 4.9 (3.3-5.0) g/dL Lipase 87 (23-300) U/L Urine Color Yellow (Yellow) Urine Appearance Cloudy A (Clear) Urine pH 8.5 (5.0-8.5) Ur Specific [place] 1.015 (1.000-1.030) Urine Protein 1+ A (Negative) Urine Glucose (UA) Negative (Negative) Urine Ketones Negative (Negative) Urine Blood Negative (Negative) Urine Nitrite Negative (Negative) Urine Bilirubin Negative (Negative) Urine Urobilinogen 0.2 (0.2-1.0) Ur Leukocyte Esterase Negative (Negative) Urine RBC 0-2 (0-2) Urine WBC 0-2 (0-5) Ur Squamous Epith Cells None (None-Few) Amorphous Sediment Moderate A (None) Urine Bacteria None (None) <Sonido Kurtz MD - Last Filed: 07/01/24 20:52> Lab Results 07/01/24 07/01/24 07/01/24 Range/Units 20:48 21:15 22:42 WBC 11.78 H (4.50-11.00) K/uL RBC 6.05 H (4.30-5.90) m/uL Hgb 17.4 (13.5-17.5) gm/dL Hct 51.1 (37.0-53.0) % MCV 85 (80-100) fL MCH 29 (26-34) pg MCHC 34 (32-36) gm/dL RDW Coeff of Ga 12.5 (11.5-15.5) % Plt Count 222 (140-440) K/uL Neut % (Auto) 71.8 (42.0-72.0) % Lymph % (Auto) 19.0 L (20-44) % [place] % (Auto) 8.5 (0.0-11.0) % Eos % (Auto) 0.4 (0.0-7.0) % Baso % (Auto) 0.2 (0.0-3.0) % Neut # (Auto) 8.50 H (1.7-7.0) K/uL Lymph # (Auto) 2.20 (0.90-2.90) K/uL [place] # (Auto) 1.00 H (0.00-0.90) K/UL Eos # (Auto) 0.00 (0.00-0.50) K/uL Baso # (Auto) 0.00 (0.00-0.30) K/uL Abs Immat Gran (auto) 0.00 (0.00-0.30) K/uL Imm/Tot Granulo (auto) 0.1 % Sodium 139 (135-149) mmol/L Potassium 4.1 (3.6-5.1) mmol/L Chloride 101 (96-114) mmol/L Carbon Dioxide 29 (20-32) mmol/L Anion Gap 9 (7-15) mEq/L BUN 21 (5-24) mg/dL Creatinine 1.2 (0.5-1.5) mg/dL Estimated Creat Clear 79.38 Estimated GFR 82 ml/min Glucose 114 (60-115) mg/dL Lactate 1.3 (0.5-1.9) mmol/L Calcium 10.1 (8.4-10.6) mg/dL Total Bilirubin 0.3 (0.1-1.5) mg/dL AST 25 (12-35) U/L ALT 20 (4-50) U/L Alkaline Phosphatase 55 (40-150) U/L Total Protein 8.0 (6.0-8.3) g/dL Albumin 4.9 (3.3-5.0) g/dL Lipase 87 (23-300) U/L Urine Color Yellow (Yellow) Urine Appearance Cloudy A (Clear) Urine pH 8.5 (5.0-8.5) Ur Specific [place] 1.015 (1.000-1.030) Urine Protein 1+ A (Negative) Urine Glucose (UA) Negative (Negative) Urine Ketones Negative (Negative) Urine Blood Negative (Negative) Urine Nitrite Negative (Negative) Urine Bilirubin Negative (Negative) Urine Urobilinogen 0.2 (0.2-1.0) Ur Leukocyte Esterase Negative (Negative) Urine RBC 0-2 (0-2) Urine WBC 0-2 (0-5) Ur Squamous Epith Cells None (None-Few) Amorphous Sediment Moderate A (None) Urine Bacteria None (None) <Jak Morin MD - Last Filed: 07/01/24 23:06> Imaging Data CT scan - abdomen: Attestation: I have reviewed the pertinent imaging results. <Jak Morin MD - Last Filed: 07/01/24 23:06> My impression: Small-bowel obstruction <Jak Morin MD - Last Filed: 07/01/24 23:06> Radiologist's impression: [place] [address] Diagnostic Imaging Report Patient: Vargas Mcfadden MR#: [id number] : 1990 Acct:[id number] Loc: ED Service Date: 07/01/[address]: Ordering Physician: Sonido Kurtz M.D. Date of Service: 07/01/24 Procedure(s): CT abdomen pelvis w con Accession Number(s): [id number] cc: Sonido Kurtz M.D.; Jaciel Hwang M.D.~ For Patients: As a result of the Century Cures Act, medical imaging exams and procedure reports are released immediately into your electronic medical record. You may view this report before your referring provider. If you have questions, please contact your health care provider. Indication: Abdominal pain, nausea, history of small-bowel obstruction Technique: CT through the abdomen and pelvis following 69 mL Isovue 370 IV contrast Comparison: CT abdomen pelvis performed 08/11/2023 Findings: Lower chest: No acute abnormality appreciated. Hepatobiliary: No significant parenchymal abnormality is appreciated. Spleen: Unremarkable. Pancreas: No acute abnormality appreciated. Adrenal glands: No acute abnormality appreciated. Kidneys: No significant parenchymal abnormality appreciated. No visualized calculi. No hydronephrosis. Bowel: Dilated loops of small bowel noted. No focal perienteric or pericolonic stranding is appreciated. Small bowel measures up to 3.3 centimeters. There is overall gradual decompression of small bowel with no definite focal transition point identified. Vascular: No acute abnormality appreciated. Lymph nodes: No gross lymphadenopathy. Peritoneum: Small volume free fluid. : No acute abnormality appreciated. Soft tissues: No acute abnormality appreciated. Bones: No acute fracture. No lytic or blastic lesion. Impression: Dilated small bowel measuring up to 3.3 centimeters, though with overall gradual decompression of small bowel and no focal transition point identified. Small volume fluid noted layering in the pelvis. Differential includes enteritis with ileus versus early or incomplete obstruction. Please note that all CT scans at this facility use dose modulation, iterative reconstruction, and/or weight-based dosing when appropriate to reduce radiation dose to as low as reasonably achievable. Dictated by Christiano Higgins MD @ 07/01/2024 10:26:11 PM (Electronically Signed) <Jak Morin MD - Last Filed: 07/01/24 23:06> Discharge Plan Discharge Clinical Impression: Small bowel obstruction, Abdominal pain <Sonido Kurtz MD - Last Filed: 07/01/24 20:52> Patient Disposition: Admitted As Observation <Sonido Kurtz MD - Last Filed: 07/01/24 20:52> Condition: Stable <Sonido Kurtz MD - Last Filed: 07/01/24 20:52> Activity Level: Light activity <Sonido Kurtz MD - Last Filed: 07/01/24 20:52> Light activity <Jak Morin MD - Last Filed: 07/01/24 23:06> Discharge Diet: Other <Sonido Kurtz MD - Last Filed: 07/01/24 20:52> Other <Jak Morin MD - Last Filed: 07/01/24 23:06> Diet Detail: NPOafter midnight <Sonido Kurtz MD - Last Filed: 07/01/24 20:52> NPOafter midnight <Jak Morin MD - Last Filed: 07/01/24 23:06> Prescriptions: No Action dicyclomine 10 mg capsule 10 mg PO QID PRN (Reason: abdominal pain) <Sonido Kurtz MD - Last Filed: 07/01/24 20:52> Follow Up/Referrals: Jaciel Hwang MD [Primary Care Provider] - <Sonido Kurtz MD - Last Filed: 07/01/24 20:52>
[2024-07-01 20:53] LABS: Basophils Percent Auto 0.2 % (0.0-3.0); Eosinophils Percent Auto 0.4 % (0.0-7.0); Hematocrit 51.1 % (37.0-53.0); Hemoglobin* 17.4 gm/dL (13.5-17.5); Immature Granulocytes Pct Auto 0.1 %; Mean Corpuscular HGB Conc 34 gm/dL (32-36); Mean Corpuscular Hemoglobin 29 pg (26-34); Mean Corpuscular Volume 85 fL (80-100); Monocytes Percent Auto 8.5 % (0.0-11.0); Neutrophils Percent Auto 71.8 % (42.0-72.0); Platelet Count* 222 K/uL (140-440); RDW Coefficient of Variation % 12.5 % (11.5-15.5); Red Blood Count 6.05 m/uL (4.30-5.90); Slide Review Reflex No; White Blood Count* 11.78 K/uL (4.50-11.00)
[2024-07-01] MEDS: KETOROLAC 15 MG/ML inj IVP (20:55)
[2024-07-01] MEDS: ONDANSETRON 2 MG/ML inj 4 MG IVP (20:55)
[2024-07-01 21:19] LABS: Albumin* 4.9 g/dL (3.3-5.0)
[2024-07-01 21:20] LABS: Chloride* 101 mmol/L (96-114); Potassium* 4.1 mmol/L (3.6-5.1); Sodium* 139 mmol/L (135-149)
[2024-07-01 21:22] LABS: Anion Gap 9 mEq/L (7-15); Aspartate Amino Transferase* 25 U/L (12-35); Bilirubin Total* 0.3 mg/dL (0.1-1.5); Blood Urea Nitrogen* 21 mg/dL (5-24); Carbon Dioxide* 29 mmol/L (20-32); Creatinine* 1.2 mg/dL (0.5-1.5); Est. Creatinine Clearance* 79.38; Estimated Glomerular Filt Rate 82 ml/min
[2024-07-01 21:23] LABS: Alanine Aminotransferase* 20 U/L (4-50); Alkaline Phosphatase* 55 U/L (40-150); Calcium* 10.1 mg/dL (8.4-10.6); Glucose* 114 mg/dL (60-115); Lipase* 87 U/L (23-300)
[2024-07-01 21:32] LABS: Bilirubin Urine Negative (Negative); Blood Urine Negative (Negative); Color Urine Yellow (Yellow); Glucose Urine Negative (Negative); Ketones Urine Negative (Negative); Leukocyte Esterase Urine Negative (Negative); Nitrite Urine Negative (Negative); Protein Urine 1+ (Negative); Specific Gravity Urine 1.015 (1.000-1.030); Urobilinogen Urine 0.2 (0.2-1.0); pH Urine 8.5 (5.0-8.5)
[2024-07-01 21:33] LABS: Appearance Urine Cloudy (Clear)
[2024-07-01 21:47] LABS: Amorphous Sediment Urine Moderate; RBC Urine 0-2 (0-2); WBC Urine 0-2 (0-5)
[2024-07-01 22:01] VITALS: BP 119/84; PULSE 90; O2SAT 98
[2024-07-01 22:43] LABS: Lactate* 1.3 mmol/L (0.5-1.9)
--- NOTE | 2024-07-01 23:19 | CRLHL7_ITS ---
For Patients: As a result of the Century Cures Act, medical imaging exams and procedure reports are released immediately into your electronic medical record. You may view this report before your referring provider. If you have questions, please contact your health care provider. INDICATION: NG tube placement. TECHNIQUE: Chest 1 views. COMPARISON: Chest x-ray 10/31/2020. FINDINGS/IMPRESSION: Enteric tube is noted with tip and side hole below the diaphragm in the region of the stomach, in satisfactory position. Excreted contrast is noted within the renal collecting systems. Nonspecific bowel gas pattern is evident. Lungs are clear. No acute osseous abnormality. Dictated by Yoav Erwin MD @ 07/02/2024 12:16:09 AM (Electronically Signed)
[2024-07-01 23:20] VITALS: O2SAT 98
[2024-07-01 23:29] VITALS: BP 125/81
[2024-07-01] MEDS: HYDROmorphone 0.5 mg/0.5 ml inj IVP (23:29)
[2024-07-02 00:20] VITALS: BP 115/71; PULSE 83; RESP 16; TEMP 36.4; O2SAT 98; BMI 18.6
--- NOTE | 2024-07-02 00:57 | W.PM.THH&P_ITS ---
Telehealth- H&P: HPI History of Present Illness Date Seen: 07/02/24 Chief complaint: Abdominal pain Narrative: Vargas Mcfadden is seen as an Interactive Telehealth visit. Vargas Mcfadden is a 34 year old male who Presents to hospital with intractable abdominal pain. Patient has a history of previous abdominal surgeries. He has had a history of appendicitis and previous small bowel obstruction status post laparoscopy. At this point he has had abdominal pain for 24 hours. When he came to the emergency room, he was seen by ER physician. His WBC count was elevated at 12,000. Lactic acid was normal 1.3. Due to the patient's abdominal pain, the patient underwent an abdominal CT scan. There was a noted dilated small bowel measuring 3.3 cm with gradual decompression of the small bowel but no focal transition point. There is concern for either enteritis versus ileus versus obstruction. Patient states that he had had a bowel movement earlier in the day but was unable to have a bowel movement since then. He is not having any diarrhea. He does have a history of irritable bowel syndrome and he takes dicyclomine which she took earlier today prior to coming to the hospital. At this time the patient is not having any bowel movements or is he passing gas. ER physician spoke to the general surgery team who stated they will see in the AM. Review of Systems Status of ROS: Reports: 10 or more systems reviewed and unremarkable except as noted in History and below Const: Denies: change in weight ENMT: Denies: difficulty swallowing Cardio: Denies: chest pain or shortness of breath with exertion Resp: Denies: shortness of breath GI: Reports: abdominal pain, nausea and vomiting; Denies: coffee grounds in vomit or difficulty swallowing : Denies: painful urination [facility] Medical History IBS (irritable bowel syndrome) ?K58.9 - Irritable bowel syndrome without diarrhea (ICD-10) Pleurisy (10/31/20) ?R09.1 - Pleurisy (ICD-10) Intermittent small bowel obstruction ?K56.609 - Unspecified intestinal obstruction, unspecified as to partial versus complete obstruction (ICD-10) Surgical History History of appendectomy ?Z90.49 - Acquired absence of other specified parts of digestive tract (ICD- 10) History of exploratory laparotomy (09/03/16) ?Z98.890 - Other specified postprocedural states (ICD-10) Social History What is your current living situation?: I presently have a place to live Problems where you live: no known problems In the past 12 months, utilities in danger of being shut off: no In past 12 months, lack of transportation kept you from medical appts, meetings, work, or getting things needed for daily living: no How hard is it for you to pay for the very basics like food, housing, medical care, and heating: not very hard In the past 12 mos, have been you worried that your food would run out before you had money to buy more?: never true In the past 12 mos, the food you bought just didn't last and you didn't have money to buy more?: never true Smoking Status: Never smoker Do you use any of these nicotine containing products: None Second hand tobacco smoke exposure: No How often do you have a drink containing alcohol: monthly or less AUDIT-C Alcohol total score: 1 Non-prescribed substance use: denies use How often does anyone, including family, friends and others, physically hurt you : never How often does anyone, including family, friends and others, insult or talk down to you: never How often does anyone, including family, friends and others, threaten you with harm: never How often does anyone, including family, friends and others, scream or curse at you: never Meds Home Medications and Allergies Home Medications ?Medication ?Instructions ?Recorded ?Confirmed ?Type dicyclomine 10 mg capsule 10 mg PO QID PRN abdominal pain 07/01/24 07/01/24 History Allergies Allergy/AdvReac Type Severity Reaction Status Date / Time bee venom protein (honey bee) Allergy Intermediate Swelling Verified 07/01/24 20:26 Exam Narrative Exam Narrative: Physical Exam GENERAL: ?vital signs reviewed, well developed and nourished, in no distress, NG tube in place HEENT: pupils are equal round and reactive to light, extraocular movements are grossly within normal limits and oral mucosa is moist. NECK: Supple without lymphadenopathy or thyromegaly according to nursing staff examination observation HEART: Regular rate and rhythm without any rubs, murmurs, or gallops. LUNGS: Clear to auscultation bilaterally with good air movement throughout ABDOMEN: Observation from nurse assisted exam, abdomen appears soft, nontender, and nondistended with Positive bowel sounds noted. He did note that prior to NG tube placement, he did have abdominal pain but it had improved during physical exam EXTREMITIES: Strength and sensation is observed to be grossly within normal limits in the upper and lower extremities.? No focal strength deficit is observed. SKIN:? Observed warm and dry with color normal Const Vital Signs, click to edit/add: Vital Signs - 24 hr 07/01/24 20:21 07/01/24 22:01 07/01/24 23:20 Temperature 98.8 F Pulse Rate [Pulse Oximeter] 104 H 90 Respiratory Rate 16 Blood Pressure [Right Arm] Blood Pressure [Right Upper Arm] 118/73 119/84 Pulse Oximetry 97 98 98 Oxygen Delivery Method Room Air Room Air 07/01/24 23:29 07/02/24 00:20 Temperature 97.5 F L Pulse Rate [Pulse Oximeter] 83 Respiratory Rate 16 Blood Pressure [Right Arm] 115/71 Blood Pressure [Right Upper Arm] 125/81 Pulse Oximetry 98 Oxygen Delivery Method Room Air Common normals: no apparent distress Hospitalist - H&P: Result Labs Labs: Short CBC 07/01/24 Range/Units 20:48 WBC 11.78 H (4.50-11.00) K/uL Hgb 17.4 (13.5-17.5) gm/dL Hct 51.1 (37.0-53.0) % Plt Count 222 (140-440) K/uL BMP 07/01/24 20:48 Sodium 139 Potassium 4.1 Chloride 101 Carbon Dioxide 29 BUN 21 Creatinine 1.2 Glucose 114 Calcium 10.1 Liver Function 07/01/24 Range/Units 20:48 Total Bilirubin 0.3 (0.1-1.5) mg/dL AST 25 (12-35) U/L ALT 20 (4-50) U/L Alkaline Phosphatase 55 (40-150) U/L Albumin 4.9 (3.3-5.0) g/dL Urine 07/01/24 Range/Units 21:15 Urine Color Yellow (Yellow) Urine Appearance Cloudy A (Clear) Urine pH 8.5 (5.0-8.5) Ur Specific [place] 1.015 (1.000-1.030) Urine Protein 1+ A (Negative) Urine Glucose (UA) Negative (Negative) Assessment and Plan Assessment and plan (1) Abdominal pain: Status: Acute (2) Small bowel obstruction: Status: Acute (3) IBS (irritable bowel syndrome): Status: Acute (4) Intermittent small bowel obstruction: Problem comment: At least x4. Status: Chronic Plan This is a 34-year-old male with a history of previous small bowel surgery who presents to hospital with intractable abdominal pain. CT scan shows possible small bowel obstruction versus partial small bowel. At this time patient is not passing gas. He is not distended but he is still having some mild on and off abdominal pain. NG tube was placed. He did have a large vomitus and large NG tube output in the emergency room. In the meantime we will keep him n.p.o., on IV fluids at 125 mL/h. I will provide IV pain medications. He did state that the Dilaudid made him nauseous but the Toradol helped. I will provide him 15 mg IV Toradol every 6 hours as needed for moderate pain. Also provide as needed Dilaudid for severe pain. Will provide him Zofran for nausea. Surgical services has been consulted from the emergency room and I spoke to him. She plans to see in the a.m. All questions were answered to the best of my ability. CT imaging was reviewed by myself. Telehealth Visit Today's History and Physical is provided via interactive telehealth by Dr. Singh Beebe MD. Patient is located at [facility]. Provider is located at [facility]. Nursing staff assisted with the patient's examination. The visit being done today meets criteria for a telehealth visit and the patient or patient's parent and/or gaurdian is aware the visit is a telehealth visit. Camera Start Time 12:40 AM Camera End Time 1:00 AM Telehealth: Statement Statement Telehealth Visit: Today's History and Physical is provided via interactive telehealth by Singh Beebe MD.? Patient is located at [facility].? Provider is located at [facility].? Nursing staff assisted with the patient's exam. The visit being done today meets criteria for a telehealth visit and the patient or patient?s parent/guardian is aware the visit is a telehealth visit.
[2024-07-02] MEDS: BENZOCAINE 20 % SPRAY 1 EACH NOSTRIL-B (01:48)
[2024-07-02] MEDS: 0.9 % SODIUM CHLORIDE 1000 ml 1,000 ML 125 ML IV ×2 (01:49→09:30)
[2024-07-02] MEDS: KETOROLAC 15 MG/ML inj IVP ×2 (04:56→11:37)
[2024-07-02] MEDS: SODIUM CHLORIDE 0.9 % (FLUSH) 10 ML SYRINGE 5 ML IVF (04:58)
[2024-07-02] MEDS: BENZOCAINE 20 % SPRAY 1 EACH PO ×2 (05:39→12:19)
[2024-07-02 07:00] VITALS: BP 117/87; PULSE 86; RESP 16; TEMP 36.4; O2SAT 100
--- NOTE | 2024-07-02 07:14 | PC.NURSE ---
Pt admitted to Med/Surg for small bowel obstruction vs ileus He has a history of 2 other times. NG was placed in the ER. No output since coming to the floor. He has been bothered by the NG and has used huricane spray x2 to help with this. Bowel tones are hypo. He did have 1 normal BM and one sm amt of diarrhea stool yesterday before coming to the ER due to pain. VSS
--- NOTE | 2024-07-02 09:52 | PM.GSCN ---
History of Present Illness Consult details Date Seen: 07/02/24 Consult date: 07/02/24 Narrative: Patient presented to the emergency department last night with 1 day worsening abdominal pain. He does state that he has pain on a daily basis, but when the pain becomes severe to the point where he ?can not stand straight? he knows to come into the emergency department. He does have a history of frequent small bowel obstructions. In 2017 he underwent a diagnostic laparoscopy. On review of this operative note there were no abnormalities of the small bowel identified. 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 This tissue was obliterated with cautery. He also had an incidental appendectomy performed. Yesterday he had 1 normal bowel movement and 1 small episode of diarrhea. The pain started on the left side and in the lower pelvis. This is typically where he has pain on a daily basis. He describes it as on and off cramping pain, no radiation. Certain positions make it worse. He had nausea and 1 large episode of emesis in the emergency department, none since. He has passed a little gas since admission. He denies any abdominal distention. He has been able to walk the halls. An NG tube was placed in the emergency department and this is the most bothersome thing for him. It hurts his throat making it hard to talk or swallow. He does not want to keep it in this morning. Right now he reports improvement in the pain with narcotic pain medicine. Review of Systems Status of ROS: Reports: 10 or more systems reviewed and unremarkable except as noted in History and below [facility] Medical History IBS (irritable bowel syndrome) ?K58.9 - Irritable bowel syndrome without diarrhea (ICD-10) Pleurisy (10/31/20) ?R09.1 - Pleurisy (ICD-10) Intermittent small bowel obstruction ?K56.609 - Unspecified intestinal obstruction, unspecified as to partial versus complete obstruction (ICD-10) Surgical History History of appendectomy ?Z90.49 - Acquired absence of other specified parts of digestive tract (ICD-10) History of exploratory laparotomy (09/03/16) ?Z98.890 - Other specified postprocedural states (ICD-10) Social History What is your current living situation?: I presently have a place to live Problems where you live: no known problems Problems where you live details: no known problem In the past 12 months, utilities in danger of being shut off: no In past 12 months, lack of transportation kept you from medical appts, meetings, work, or getting things needed for daily living: no How hard is it for you to pay for the very basics like food, housing, medical care, and heating: not very hard In the past 12 mos, have been you worried that your food would run out before you had money to buy more?: never true In the past 12 mos, the food you bought just didn't last and you didn't have money to buy more?: never true Smoking Status: Never smoker Do you use any of these nicotine containing products: None Second hand tobacco smoke exposure: No How often do you have a drink containing alcohol: monthly or less AUDIT-C Alcohol total score: 1 Non-prescribed substance use: denies use Caffeine: No How often does anyone, including family, friends and others, physically hurt you: never How often does anyone, including family, friends and others, insult or talk down to you: never How often does anyone, including family, friends and others, threaten you with harm: never How often does anyone, including family, friends and others, scream or curse at you: never Meds Home Medications and Allergies Home Medications ?Medication ?Instructions ?Recorded ?Confirmed ?Type dicyclomine 10 mg capsule 10 mg PO QID PRN abdominal pain 07/01/24 07/01/24 History Allergies Allergy/AdvReac Type Severity Reaction Status Date / Time bee venom protein (honey bee) Allergy Intermediate Swelling Verified 07/01/24 20:26 Exam Narrative: Exam Narrative: General: Alert and oriented, no acute distress HEENT: NG tube in place no output in tube or canister Abdomen: Soft, some mild tenderness in the left lower quadrant with deep palpation, no guarding or rebound. Positive bowel sound. No distention. Const: Vital Signs, click to edit/add: Vital Signs - 24 hr 07/01/24 20:21 07/01/24 22:01 07/01/24 23:20 Temperature 98.8 F Pulse Rate [Pulse Oximeter] 104 H 90 Respiratory Rate 16 Blood Pressure [Ri ght Arm] Blood Pressure [Ri ght Upper Arm] 118/73 119/84 Pulse Oximetry 97 98 98 Oxygen Delivery Me thod Room Air Room Air 07/01/24 23:29 07/02/24 00:20 07/02/24 07:00 Temperature 97.5 F L Pulse Rate [Pulse Oximeter] 83 86 Respiratory Rate 16 16 Blood Pressure [Ri ght Arm] 115/71 Blood Pressure [Ri ght Upper Arm] 125/81 Pulse Oximetry 98 Oxygen Delivery Me thod Room Air 07/02/24 07:00 Temperature 97.6 F Pulse Rate [Pulse Oximeter] 86 Respiratory Rate 16 Blood Pressure [Ri ght Arm] 117/87 Blood Pressure [Ri ght Upper Arm] Pulse Oximetry 100 Oxygen Delivery Me thod Room Air Results Labs Labs: Abnormal lab results 07/01/24 07/01/24 Range/Units 20:48 21:15 WBC 11.78 H (4.50-11.00) K/uL RBC 6.05 H (4.30-5.90) m/uL Lymph % (Auto) 19.0 L (20-44) % Neut # (Auto) 8.50 H (1.7-7.0) K/uL [place] # (Auto) 1.00 H (0.00-0.90) K/UL Urine Appearance Cloudy A (Clear) Urine Protein 1+ A (Negative) Amorphous Sediment Moderate A (None) Diabetes panel 07/01/24 Range/Units 20:48 Sodium 139 (135-149) mmol/L Potassium 4.1 (3.6-5.1) mmol/L Chloride 101 (96-114) mmol/L Carbon Dioxide 29 (20-32) mmol/L BUN 21 (5-24) mg/dL Creatinine 1.2 (0.5-1.5) mg/dL Glucose 114 (60-115) mg/dL Calcium 10.1 (8.4-10.6) mg/dL AST 25 (12-35) U/L ALT 20 (4-50) U/L Alkaline Phosphatase 55 (40-150) U/L Total Protein 8.0 (6.0-8.3) g/dL Albumin 4.9 (3.3-5.0) g/dL Calcium panel 07/01/24 Range/Units 20:48 Calcium 10.1 (8.4-10.6) mg/dL Albumin 4.9 (3.3-5.0) g/dL Pituitary panel 07/01/24 Range/Units 20:48 Sodium 139 (135-149) mmol/L Potassium 4.1 (3.6-5.1) mmol/L Chloride 101 (96-114) mmol/L Carbon Dioxide 29 (20-32) mmol/L BUN 21 (5-24) mg/dL Creatinine 1.2 (0.5-1.5) mg/dL Glucose 114 (60-115) mg/dL Calcium 10.1 (8.4-10.6) mg/dL Adrenal panel 07/01/24 Range/Units 20:48 Sodium 139 (135-149) mmol/L Potassium 4.1 (3.6-5.1) mmol/L Chloride 101 (96-114) mmol/L Carbon Dioxide 29 (20-32) mmol/L BUN 21 (5-24) mg/dL Creatinine 1.2 (0.5-1.5) mg/dL Glucose 114 (60-115) mg/dL Calcium 10.1 (8.4-10.6) mg/dL Total Bilirubin 0.3 (0.1-1.5) mg/dL AST 25 (12-35) U/L ALT 20 (4-50) U/L Alkaline Phosphatase 55 (40-150) U/L Total Protein 8.0 (6.0-8.3) g/dL Albumin 4.9 (3.3-5.0) g/dL All other labs normal. Progress Note:A&P Assessment and plan (1) Small bowel obstruction: Status: Acute Assessment and Plan: Patient is a 34-year-old male with history of previous multiple small bowel obstructions, who presents with 1 day worsening pain in the lower pelvis, nausea and an episode of emesis. A CT scan was obtained which demonstrated dilated small bowel, no focal transition point identified. Differential includes enteritis versus ileus versus partial obstruction with patient reporting continued passage of gas. He does want the NG tube removed today. I did discuss with the patient my recommendation for conservative management to continue with NG tube and NPO status. After discussing risks and benefits of pulling the NG tube he was agreeable to performing a clamping trial this morning. I will plan to clamp the NG tube this morning and re-evaluated noon for possible removal. Recommend he continue NPO status for now and encouraged ambulation.
--- NOTE | 2024-07-02 10:23 | PM.IMPN1 ---
Progress Note: A&P Assessment and plan (1) Small bowel obstruction: Problem details: - NG placed upon admission - Dr. Neff from surgery following - electrolytes and vital signs stable Status: Acute Plan - NG clamped this morning, reassess mid day - remains NPO - pain medications and antiemetics as needed - home with when medically appropriate for discharge Subjective Date Seen: 07/02/24 Interval history: Kemar was admitted to the hospital early this morning with recurrent SBO requiring NG placement. Generally healthy, on no daily prescription medications. Has discomfort from NG, no other concerns for hospitalist team. Dr. Neff from General Surgery involved in care. Exam Narrative: Exam Narrative: GEN: Alert and oriented, appears uncomfortable but nontoxic HEENT: NG in place CV: RRR, No concerning murmurs R: LCTA bilaterally without concerning wheezing Ab: Soft, mild distension, tolerates exam, hypoactive bowel sounds Ext: wwp, no concerning edema Skin: No concerning skin lesions or rashes on exposed skin Neuro: Nonfocal Psych: Appropriate Const: Vital Signs, click to edit/add: Vital Signs - 24 hr 07/01/24 20:21 07/01/24 22:01 07/01/24 23:20 Temperature 98.8 F Pulse Rate [Pulse Oximeter] 104 H 90 Respiratory Rate 16 Blood Pressure [Ri ght Arm] Blood Pressure [Ri ght Upper Arm] 118/73 119/84 Pulse Oximetry 97 98 98 Oxygen Delivery Me thod Room Air Room Air 07/01/24 23:29 07/02/24 00:20 07/02/24 07:00 Temperature 97.5 F L Pulse Rate [Pulse Oximeter] 83 86 Respiratory Rate 16 16 Blood Pressure [Ri ght Arm] 115/71 Blood Pressure [Ri ght Upper Arm] 125/81 Pulse Oximetry 98 Oxygen Delivery Me thod Room Air 07/02/24 07:00 Temperature 97.6 F Pulse Rate [Pulse Oximeter] 86 Respiratory Rate 16 Blood Pressure [Ri ght Arm] 117/87 Blood Pressure [Ri ght Upper Arm] Pulse Oximetry 100 Oxygen Delivery Me thod Room Air Labs Labs: Laboratory Results - last 24 hr 07/01/24 07/01/24 07/01/24 20:48 21:15 22:42 WBC 11.78 H RBC 6.05 H Hgb 17.4 Hct 51.1 MCV 85 MCH 29 MCHC 34 RDW Coeff of Ga 12.5 Plt Count 222 Neut % (Auto) 71.8 Lymph % (Auto) 19.0 L [place] % (Auto) 8.5 Eos % (Auto) 0.4 Baso % (Auto) 0.2 Neut # (Auto) 8.50 H Lymph # (Auto) 2.20 [place] # (Auto) 1.00 H Eos # (Auto) 0.00 Baso # (Auto) 0.00 Abs Immat Gran (auto) 0.00 Imm/Tot Granulo (auto) 0.1 Sodium 139 Potassium 4.1 Chloride 101 Carbon Dioxide 29 Anion Gap 9 BUN 21 Creatinine 1.2 Estimated Creat Clear 79.38 Estimated GFR 82 Glucose 114 Lactate 1.3 Calcium 10.1 Total Bilirubin 0.3 AST 25 ALT 20 Alkaline Phosphatase 55 Total Protein 8.0 Albumin 4.9 Lipase 87 Urine Color Yellow Urine Appearance Cloudy A Urine pH 8.5 Ur Specific [place] 1.015 Urine Protein 1+ A Urine Glucose (UA) Negative Urine Ketones Negative Urine Blood Negative Urine Nitrite Negative Urine Bilirubin Negative Urine Urobilinogen 0.2 Ur Leukocyte Esterase Negative Urine RBC 0-2 Urine WBC 0-2 Ur Squamous Epith Cells None Amorphous Sediment Moderate A Urine Bacteria None
[2024-07-02 11:00] VITALS: BP 133/88; PULSE 100; RESP 16; TEMP 36.4; O2SAT 100
[2024-07-02 15:00] VITALS: BP 115/72; PULSE 100; PULSE 88; RESP 16; TEMP 36.6; O2SAT 100
[2024-07-02] MEDS: 0.9 % SODIUM CHLORIDE 1000 ml 1,000 ML 75 ML IV (17:43)
[2024-07-02 19:00] VITALS: BP 113/84; PULSE 80; RESP 16; TEMP 36.6; O2SAT 100
--- NOTE | 2024-07-02 19:16 | PC.NURSE ---
End of shift: Patient is pleasant and cooperative. A/O x4. Patients NG removed tip intact by Dr. Neff. patient denies N/V, rates pain 2/10 PRN toradol. Patient is ambulating hallways indep and passing gas throughout the day. Patient has not had a BM today. Patient advanced to clears and tolerating well. VSS. on RA.
[2024-07-02] MEDS: ENOXAPARIN 40 MG/0.4 ML INJ SUBCUT (20:32)
[2024-07-02 23:00] VITALS: RESP 16
[2024-07-03] VITALS (7 sets, daily range): BP systolic 98–122; BP diastolic 61–81; PULSE 71–97; RESP 16–18; TEMP 36.4–36.7; O2SAT 97–100
[2024-07-03] MEDS: 0.9 % SODIUM CHLORIDE 1000 ml 1,000 ML 75 ML IV (05:41)
[2024-07-03] MEDS: ACETAMINOPHEN 325 MG TABLET 650 MG PO (06:02)
[2024-07-03 06:27] LABS: Basophils Absolute Auto 0.01 K/uL (0.00-0.30); Basophils Percent Auto 0.2 % (0.0-3.0); Eosinophils Absolute Auto 0.12 K/uL (0.00-0.50); Eosinophils Percent Auto 1.9 % (0.0-7.0); Hematocrit 42.8 % (37.0-53.0); Hemoglobin* 14.1 gm/dL (13.5-17.5); Immature Granulocytes Abs Auto 0.01 K/uL (0.00-0.30); Immature Granulocytes Pct Auto 0.2 %; Lymphocytes Percent Auto 28.3 % (20-44); Mean Corpuscular HGB Conc 33 gm/dL (32-36); Mean Corpuscular Hemoglobin 29 pg (26-34); Mean Corpuscular Volume 88 fL (80-100); Monocytes Percent Auto 11.2 % (0.0-11.0); Neutrophils Absolute Auto 3.71 K/uL (1.7-7.0); Neutrophils Percent Auto 58.2 % (42.0-72.0); Platelet Count* 176 K/uL (140-440); RDW Coefficient of Variation % 12.7 % (11.5-15.5); Red Blood Count 4.84 m/uL (4.30-5.90); White Blood Count* 6.36 K/uL (4.50-11.00)
[2024-07-03 06:37] LABS: Slide Review Reflex No
--- NOTE | 2024-07-03 06:38 | PC.NURSE ---
End of shift [id number]: Pt AxOx4, cooperative, and pleasant. Pt is indep and walking the halls frequently during shift. Pt is passing gas, awaiting BM. Tolerating clear diet well. Pt is continent of the bladder. Pt rated pain 2/10 and stated ?tolerating.? No further intervention needed. Pt stated having a headache this AM, credit underwriter gave PRN Tylenol. Pt is now resting comfortably watching television with call light in reach. ?
[2024-07-03 06:52] LABS: Albumin* 3.5 g/dL (3.3-5.0); Chloride* 109 mmol/L (96-114); Potassium* 4.2 mmol/L (3.6-5.1); Sodium* 136 mmol/L (135-149)
[2024-07-03 06:54] LABS: Creatinine* 0.9 mg/dL (0.5-1.5); Est. Creatinine Clearance* 105.99; Estimated Glomerular Filt Rate 116 ml/min
[2024-07-03 06:55] LABS: Alanine Aminotransferase* 15 U/L (4-50); Alkaline Phosphatase* 47 U/L (40-150); Anion Gap 1 mEq/L (7-15); Aspartate Amino Transferase* 18 U/L (12-35); Bilirubin Total* 0.7 mg/dL (0.1-1.5); Blood Urea Nitrogen* 14 mg/dL (5-24); Calcium* 8.8 mg/dL (8.4-10.6); Carbon Dioxide* 26 mmol/L (20-32); Glucose* 90 mg/dL (60-115); Total Protein* 5.7 g/dL (6.0-8.3)
[2024-07-03] MEDS: SODIUM CHLORIDE 0.9 % (FLUSH) 10 ML SYRINGE 5 ML IVF ×2 (08:35→20:50)
[2024-07-03] MEDS: KETOROLAC 15 MG/ML inj IVP (08:35)
--- NOTE | 2024-07-03 09:50 | PM.GSPN ---
Subjective Subjective Date Seen: 07/03/24 Interval history: Patient is doing okay this morning. Overall his pain is improved compared to yesterday. He still points to the left lower quadrant with where his pain is. He has continued to pass gas overnight, nothing this morning. He denies feeling an urge to have a bowel movement. Has been tolerating clears. No real appetite. No reported nausea or vomiting. Continues to ambulate independently. Exam Narrative: Exam Narrative: General: Alert and oriented, nontoxic Abdomen: Soft, nondistended. Some mild tenderness with deep palpation left lower quadrant. This is improved compared to yesterday. Const: Vital Signs, click to edit/add: Vital Signs - 24 hr 07/02/24 11:00 07/02/24 15:00 07/02/24 15:00 Temperature 97.6 F 97.8 F Pulse Rate [Pulse Oximeter] 100 100 88 Respiratory Rate 16 16 16 Blood Pressure [Ri ght Arm] 133/88 115/72 Pulse Oximetry 100 100 Oxygen Delivery Me thod Room Air Room Air 07/02/24 19:00 07/02/24 23:00 07/03/24 03:00 Temperature 97.8 F 98.1 F Pulse Rate [Pulse Oximeter] 80 97 Respiratory Rate 16 16 16 Blood Pressure [Ri ght Arm] 113/84 98/61 Pulse Oximetry 100 98 Oxygen Delivery Me thod Room Air Room Air 07/03/24 08:27 07/03/24 08:27 Temperature 97.6 F Pulse Rate [Pulse Oximeter] 82 77 Respiratory Rate 16 16 Blood Pressure [Ri ght Arm] 110/71 Pulse Oximetry 97 Oxygen Delivery Me thod Room Air Labs/Imaging Labs Labs: No leukocytosis. BMP within normal limits Imaging Imaging: No new imaging Progress Note:A&P Assessment and plan (1) Small bowel obstruction: Status: Acute Assessment and Plan: Patient is a 34-year-old male with a partial small-bowel obstruction. Patient requested removal of his NG tube yesterday. He continues to pass gas, but no bowel movement. Is tolerating clear liquids. -would recommend continuing clear liquids. Advance diet after patient has a bowel movement -continue to encourage ambulation
--- NOTE | 2024-07-03 12:27 | P.IMPN_ITS ---
Progress Note: A&P Assessment and plan (1) Small bowel obstruction: Problem details: - NG placed upon admission, removed 07/02 pm - clears 07/03 - Dr. Neff from surgery following - electrolytes and vital signs stable Status: Acute Plan - per above - if continues to advance diet well, likely home 07/04 Subjective Date Seen: 07/03/24 Interval history: Kemar presented to the ER on 07/01, admitted early 07/02 for recurrent SBO requiring NG placement. Generally healthy, on no daily prescription medications. VS and labs stable NG removed 07/02, passing flatus, no BM yet. Has started clears and tolerating. Dr. Neff of General Surgery following. Exam Narrative: Exam Narrative: GEN: Alert and oriented, sitting comfortably in bed CV: RRR, No concerning murmurs R: LCTA bilaterally Ab: No concerning distention, BS hypoactive but present Ext: wwp, no concerning edema Skin: No concerning skin lesions or rashes on exposed skin Neuro: Nonfocal Psych: Appropriate Const: Vital Signs, click to edit/add: Vital Signs - 24 hr 07/02/24 15:00 07/02/24 15:00 07/02/24 19:00 Temperature 97.8 F 97.8 F Pulse Rate [Pulse Oximeter] 100 88 80 Respiratory Rate 16 16 16 Blood Pressure [Ri ght Arm] 115/72 113/84 Pulse Oximetry 100 100 Oxygen Delivery Me thod Room Air Room Air 07/02/24 23:00 07/03/24 03:00 07/03/24 08:27 Temperature 98.1 F Pulse Rate [Pulse Oximeter] 97 82 Respiratory Rate 16 16 16 Blood Pressure [Ri ght Arm] 98/61 Pulse Oximetry 98 Oxygen Delivery Me thod Room Air 07/03/24 08:27 Temperature 97.6 F Pulse Rate [Pulse Oximeter] 77 Respiratory Rate 16 Blood Pressure [Ri ght Arm] 110/71 Pulse Oximetry 97 Oxygen Delivery Me thod Room Air Labs Labs: Laboratory Results - last 24 hr 07/03/24 05:46 WBC 6.36 RBC 4.84 Hgb 14.1 Hct 42.8 MCV 88 MCH 29 MCHC 33 RDW Coeff of Ga 12.7 Plt Count 176 Neut % (Auto) 58.2 Lymph % (Auto) 28.3 [place] % (Auto) 11.2 H Eos % (Auto) 1.9 Baso % (Auto) 0.2 Neut # (Auto) 3.71 Lymph # (Auto) 1.80 [place] # (Auto) 0.70 Eos # (Auto) 0.12 Baso # (Auto) 0.01 Abs Immat Gran (auto) 0.01 Imm/Tot Granulo (auto) 0.2 Sodium 136 Potassium 4.2 Chloride 109 Carbon Dioxide 26 Anion Gap 1 L BUN 14 Creatinine 0.9 Estimated Creat Clear 105.99 Estimated GFR 116 Glucose 90 Calcium 8.8 Magnesium 2.0 Total Bilirubin 0.7 AST 18 ALT 15 Alkaline Phosphatase 47 Total Protein 5.7 L Albumin 3.5
--- NOTE | 2024-07-03 19:06 | PC.NURSE ---
Nursing Care Hours: [id number] Pt this shift alert and oriented, calm and cooperative. Rating pain 3/10 all day with periods of 2/10. Treated per eMAR and heating pad. Pt up walking the [place] and noted increase in pain after walk later afternoon. Discussed allowing more rests and not pushing the walks too much. Pt had one loose stool in the evening. Advanced diet to full liquids and tolerating well. Per surgeon, ok to DC IV fluids.
[2024-07-03] MEDS: ENOXAPARIN 40 MG/0.4 ML INJ SUBCUT (20:53)
[2024-07-04 06:40] VITALS: BP 111/73; PULSE 90; RESP 16; O2SAT 99
[2024-07-04 06:54] LABS: Basophils Absolute Auto 0.01 K/uL (0.00-0.30); Basophils Percent Auto 0.2 % (0.0-3.0); Eosinophils Percent Auto 1.8 % (0.0-7.0); Hematocrit 42.3 % (37.0-53.0); Lymphocytes Absolute Auto 1.56 K/uL (0.90-2.90); Lymphocytes Percent Auto 27.8 % (20-44); Mean Corpuscular HGB Conc 33 gm/dL (32-36); Mean Corpuscular Hemoglobin 29 pg (26-34); Mean Corpuscular Volume 87 fL (80-100); Monocytes Percent Auto 12.7 % (0.0-11.0); Neutrophils Absolute Auto 3.23 K/uL (1.7-7.0); Neutrophils Percent Auto 57.5 % (42.0-72.0); Platelet Count* 170 K/uL (140-440); RDW Coefficient of Variation % 12.5 % (11.5-15.5); Red Blood Count 4.85 m/uL (4.30-5.90); White Blood Count* 5.61 K/uL (4.50-11.00)
[2024-07-04 06:58] LABS: Slide Review Reflex No
--- NOTE | 2024-07-04 07:02 | PC.NURSE ---
Pt is alert and oriented x3. Afebrile. Pt reports 2/10 pain at rest and 3-4/10 pain with movement and some intermittent sharp pain that pt reported ?It comes on suddenly and goes away quickly but makes it difficult to even speak?. Discussed with pt pain options pt refused pain medication stating, ?I don?t feel it is bad enough to take pain medications?. Pt reports that the intermittent sharp pain has not been felt since when he first came in, until today, and reports gas output but ?it seems less than yesterday?. Pt bowel sounds are active, pt is voiding, up ad hilary in room, walking halls and reports tolerating full liquids. Pt?s left arm IV fell out, catheter intact, new IV placed in left forearm.
[2024-07-04 07:11] LABS: Chloride* 108 mmol/L (96-114); Potassium* 3.7 mmol/L (3.6-5.1); Sodium* 137 mmol/L (135-149)
[2024-07-04 07:14] LABS: Anion Gap 2 mEq/L (7-15); Blood Urea Nitrogen* 11 mg/dL (5-24); Carbon Dioxide* 27 mmol/L (20-32); Est. Creatinine Clearance* 92.24; Estimated Glomerular Filt Rate 103 ml/min; Glucose* 85 mg/dL (60-115)
[2024-07-04 07:15] LABS: Calcium* 8.9 mg/dL (8.4-10.6)
[2024-07-04 09:00] VITALS: RESP 16
[2024-07-04] MEDS: SODIUM CHLORIDE 0.9 % (FLUSH) 10 ML SYRINGE 5 ML IVF ×2 (10:00→19:46)
--- NOTE | 2024-07-04 10:05 | PM.GSPN ---
Subjective Subjective Date Seen: 07/04/24 Interval history: Patient is doing okay this morning. He did try some full liquids yesterday but reports that he had increased pain when he did. He has backed off and continued clear liquids. His pain at worst is 3/10. He does have some increase in pain with walking, this improves with lying down. The pain is on his left side in his lower pelvis. He denies any abdominal distension. No nausea or vomiting. Still no significant appetite. He continues to pass gas and had 1 bowel movement yesterday. Exam Narrative: Exam Narrative: General: Alert and oriented, no acute distress Abdomen: Soft, some mild tenderness with deep palpation left lower quadrant with no guarding or rebound. Nondistended. Positive bowel sounds during examination. Const: Vital Signs, click to edit/add: Vital Signs - 24 hr 07/03/24 12:26 07/03/24 14:49 07/03/24 15:00 Temperature Pulse Rate [Pulse Oximeter] 84 76 76 Respiratory Rate 16 18 18 Blood Pressure [Ri ght Arm] 122/75 110/75 Pulse Oximetry 100 98 Oxygen Delivery Me thod Room Air Room Air 07/03/24 20:42 07/03/24 22:36 07/04/24 06:40 Temperature 97.7 F 97.6 F Pulse Rate [Pulse Oximeter] 78 71 90 Respiratory Rate 16 16 16 Blood Pressure [Ri ght Arm] 119/77 115/81 111/73 Pulse Oximetry 100 100 99 Oxygen Delivery Me thod Room Air Room Air Room Air Labs/Imaging Labs Labs: No leukocytosis Imaging Imaging: No new imaging Progress Note:A&P Assessment and plan (1) Small bowel obstruction: Status: Acute Assessment and Plan: Patient is a 34-year-old male with a partial small-bowel obstruction. Patient has had return of bowel function, but been very cautious about advancing diet. Exam stable. Agree with starting with clear liquids this morning and advancing as tolerated. Patient was encouraged to continue to ambulate.
[2024-07-04 12:36] VITALS: BP 128/87; PULSE 67; RESP 18; TEMP 36.6; O2SAT 100
--- NOTE | 2024-07-04 13:43 | P.IMPN_ITS ---
Progress Note: A&P Assessment and plan (1) Small bowel obstruction: Problem details: - NG placed upon admission, removed 07/02 pm - clears 07/03 - advanced to fulls with increased pain. Continue diet as tolerated, advancing as able per General surgery - Dr. eNff from surgery following - electrolytes and vital signs stable Status: Acute Plan Continue to advance diet as tolerated with plan to discharge home when able Time Spent With Patient Total time spent: Total time spent caring for the patient today was 45 minutes. This includes time spent for the visit reviewing the chart, time spent during the visit, time spent after the visit and documentation and planning in coordination of care. Subjective Date Seen: 07/04/24 Interval history: Patient is seen sitting up in bed this morning. Attempted fulls last night and reported increased abdominal pain with this. No nausea or vomiting. Has gone back to clear diet this morning. Tolerating this without increasing pain or nausea vomiting. Remains afebrile. Denies headache or dizziness. Ambulating frequently throughout the day. Did have a loose stool yesterday. General surgery continues to follow. Exam Narrative: Exam Narrative: PHYSICAL EXAM General: Pleasant, conversant, NAD HEENT: Normocephalic, atraumatic, sclera white, EOMI, oral mucosa moist Cardiovascular: RRR, S1S2. No pitting edema Pulmonary: CTA bilaterally without rhonchi, rales, expiratory wheezes. No dyspnea Abdominal: Soft, minimal distention, NTTP Neurological: Alert, answering questions appropriately, cranial nerves intact, no focal findings Extremities: No gross joint deformity or swelling. AROMI. Neurovascularly intact Skin: Warm, dry. Const: Vital Signs, click to edit/add: Vital Signs - 24 hr 07/03/24 14:49 07/03/24 15:00 07/03/24 20:42 Temperature 97.7 F Pulse Rate [Pulse Oximeter] 76 76 78 Respiratory Rate 18 18 16 Blood Pressure [Ri ght Arm] 110/75 119/77 Pulse Oximetry 98 100 Oxygen Delivery Me thod Room Air Room Air 07/03/24 22:36 07/04/24 06:40 07/04/24 09:00 Temperature 97.6 F Pulse Rate [Pulse Oximeter] 71 90 Respiratory Rate 16 16 16 Blood Pressure [Ri ght Arm] 115/81 111/73 Pulse Oximetry 100 99 Oxygen Delivery Me thod Room Air Room Air 07/04/24 12:36 Temperature 97.8 F Pulse Rate [Pulse Oximeter] 67 Respiratory Rate 18 Blood Pressure [Ri ght Arm] 128/87 Pulse Oximetry 100 Oxygen Delivery Me thod Room Air Labs Labs: Laboratory Results - last 24 hr 07/04/24 06:24 WBC 5.61 RBC 4.85 Hgb 14.0 Hct 42.3 MCV 87 MCH 29 MCHC 33 RDW Coeff of Ga 12.5 Plt Count 170 Neut % (Auto) 57.5 Lymph % (Auto) 27.8 [place] % (Auto) 12.7 H Eos % (Auto) 1.8 Baso % (Auto) 0.2 Neut # (Auto) 3.23 Lymph # (Auto) 1.56 [place] # (Auto) 0.70 Eos # (Auto) 0.10 Baso # (Auto) 0.01 Abs Immat Gran (auto) 0.00 Imm/Tot Granulo (auto) 0.0 Sodium 137 Potassium 3.7 Chloride 108 Carbon Dioxide 27 Anion Gap 2 L BUN 11 Creatinine 1.0 Estimated Creat Clear 92.24 Estimated GFR 103 Glucose 85 Calcium 8.9
[2024-07-04 15:00] VITALS: BP 123/84; PULSE 72; PULSE 77; RESP 18; O2SAT 96
--- NOTE | 2024-07-04 19:30 | PC.NURSE ---
Nursing Care Hours:[id number] Pt this shift walking independently. Passing gas and had four loose BM. Advanced diet from clears to full liquid without increase in pain or nausea. VSS.
[2024-07-04 19:41] VITALS: BP 117/78; PULSE 77; RESP 16; TEMP 36.4; O2SAT 100
[2024-07-04 22:50] VITALS: BP 107/75; PULSE 77; RESP 16; TEMP 36.7; O2SAT 100
[2024-07-05 04:52] VITALS: RESP 16
--- NOTE | 2024-07-05 07:01 | PC.NURSE ---
Pt is alert and oriented x3. Afebrile. Pt reports 1/10 dull pain in abdomen, pain medications offered pt refused. No bm overnight. Pt bowel sounds are active, pt is voiding, up ad hilary in room, walking halls and tolerating a full liquid diet.
[2024-07-05 08:30] VITALS: BP 118/76; PULSE 72; RESP 16; O2SAT 100
--- NOTE | 2024-07-05 09:56 | PM.DS1 ---
DS: Providers Provider Date Seen: 07/05/24 Date of admission: 07/02/24 00:47 Primary care physician: Jaciel Hwang MD Admitting Clinician: Singh Beebe MD Attending Physician on discharge: Alla Everett [facility] Date of Discharge: 07/05/24 DS: Diagnosis Discharge Diagnosis (1) Small bowel obstruction: Status: Acute Problem details: - NG placed upon admission, removed 07/02 pm - clears 07/03 - advanced to fulls with increased pain. Continue diet as tolerated, advancing as able per General surgery - Dr. Neff from surgery following - electrolytes and vital signs stable Acute on chronic recurrent small-bowel obstruction managed nonsurgically. Tolerated slow advancement in diet without further pain or nausea/vomiting. Passing flatus and having bowel movements. Discharged to home to continue diet advancement. Continue frequent ambulation. Outpatient follow-up with PCP. DS: Summary Hospital Course Hospital Course: [age] year old male past was admitted to the medical floor for management acute on chronic recurrent small-bowel obstruction. Course of care and details as noted above. Remainder of chronic medical comorbidities were monitored and managed with home medications. Time Spent with Patient Time attestation: Total time spent providing and/or coordinating discharge services: Exam Narrative: Exam Narrative: PHYSICAL EXAM General: Pleasant, conversant, NAD Cardiovascular: RRR Pulmonary: No dyspnea Abdomen: Soft, no distention this morning, mild tenderness left lower quadrant Neurological: Alert, answering questions appropriately Skin: Warm, dry. Const: Vital Signs, click to edit/add: Vital Signs - 24 hr 07/04/24 12:36 07/04/24 15:00 07/04/24 15:00 Temperature 97.8 F Pulse Rate [Pulse Oximeter] 67 72 77 Respiratory Rate 18 18 18 Blood Pressure [Ri ght Arm] 128/87 123/84 Pulse Oximetry 100 96 Oxygen Delivery Me thod Room Air Room Air 07/04/24 19:41 07/04/24 22:50 07/05/24 04:52 Temperature 97.5 F L 98.0 F Pulse Rate [Pulse Oximeter] 77 77 Respiratory Rate 16 16 16 Blood Pressure [Ri ght Arm] 117/78 107/75 Pulse Oximetry 100 100 Oxygen Delivery Me thod Room Air Room Air DS: Data Imaging Chest x-ray: Attestation: I have reviewed the pertinent imaging results. Radiologist's impression: NG tube placement. TECHNIQUE: Chest 1 views. COMPARISON: Chest x-ray 10/31/2020. FINDINGS/IMPRESSION: Enteric tube is noted with tip and side hole below the diaphragm in the region of the stomach, in satisfactory position. Excreted contrast is noted within the renal collecting systems. Nonspecific bowel gas pattern is evident. Lungs are clear. No acute osseous abnormality. CT scan - abdomen: My impression: Lower chest: No acute abnormality appreciated. Hepatobiliary: No significant parenchymal abnormality is appreciated. Spleen: Unremarkable. Pancreas: No acute abnormality appreciated. Adrenal glands: No acute abnormality appreciated. Kidneys: No significant parenchymal abnormality appreciated. No visualized calculi. No hydronephrosis. Bowel: Dilated loops of small bowel noted. No focal perienteric or pericolonic stranding is appreciated. Small bowel measures up to 3.3 centimeters. There is overall gradual decompression of small bowel with no definite focal transition point identified. Vascular: No acute abnormality appreciated. Lymph nodes: No gross lymphadenopathy. Peritoneum: Small volume free fluid. : No acute abnormality appreciated. Soft tissues: No acute abnormality appreciated. Bones: No acute fracture. No lytic or blastic lesion. Impression: Dilated small bowel measuring up to 3.3 centimeters, though with overall gradual decompression of small bowel and no focal transition point identified. Small volume fluid noted layering in the pelvis. Differential includes enteritis with ileus versus early or incomplete obstruction. Discharge Plan Discharge Disposition: Home, Self-Care Date of Admission: 07/02/24 00:47 Attending Provider on Discharge: Alla Everett Primary Care Provider: Jaciel Hwang Condition: Improved Anticipated Discharge Date/Time: 07/05/24 09:50 Discharge Medications: Continued dicyclomine 10 mg capsule 10 mg PO QID PRN (Reason: abdominal pain) Discharge Orders: Discharge Order (Routine); Ordered 07/05/24 Ordered By: Alla Everett Patient Education: Bowel Obstruction (GEN) Additional Instructions: Continue to slowly advance your diet as tolerated. Continue frequent ambulation. Activity Level: Activity as Tolerated Discharge Diet: Regular and Other Follow Up Appointments: Jaciel Hwang MD [Primary Care Provider] - (Post hospital follow up 3-5 days) [facility]: [facility] Instructions
--- NOTE | 2024-07-05 12:04 | PC.NURSE ---
Nursing Care Hours: [id number] pt advanced diet to regular soft, tolerated well. Passing gas. Pain maintaining at 07/17. IV removed for DC. Instructions went over with pt. Pt had questions about when he should come back in, and about diet. Wrier left message with home appliance technician but they are not in office. Engineer Technical Staff printed low fiber diet material and discussed with pt fluid intake. pt admits he does not drink as much as he should. Pt also commented about fiber helping with BM regarding his IBS. Pt however admits that most of the time he deals with constipation and hard stools and appeals writer discussed stool softener and increased fluid intake helping with this issue. Pt ambulated off the unit in stable condition.
== END 2024-07-05 12:02 | disposition home or self-care (01) | DRG 390 ==
LOC: ED 23:06 → MEDSURG 07-02 00:07
PROVIDERS: Family Medicine; Admitting Provider Student in an Organized Health Care Education/Training Program; Emergency Provider Emergency Medicine; PCP Internal Medicine; Visit Provider Student in an Organized Health Care Education/Training Program
DX: K56.600 Partial intestinal obstruction, unspecified as to cause (principal); K58.9 Irritable bowel syndrome, unspecified; R10.32 Left lower quadrant pain
CPT/HCPCS: 36415; 71045; 74177; 80048; 80053; 81001; 83605; 83690; 83735; 85025; 94761; 99284; 99285; A9270; J1171; J1650; J1885; J2405; J7030; Q9967

== ENCOUNTER 2024-07-09 09:14 | Emergency (ER) | payer OTHER, SELFPAY ==
[2024-07-09 09:24] VITALS: BP 119/78; PULSE 74; RESP 18; TEMP 36.8; O2SAT 97; BMI 19.0
--- NOTE | 2024-07-09 09:52 | CRLHL7_ITS ---
For Patients: As a result of the Century Cures Act, medical imaging exams and procedure reports are released immediately into your electronic medical record. You may view this report before your referring provider. If you have questions, please contact your health care provider. INDICATION: LLQ pain. TECHNIQUE: CT abdomen and pelvis acquired with 79 cc Isovue 370 IV contrast. COMPARISON: CT abdomen pelvis dated 07/01/2024. FINDINGS: Lower chest: Unremarkable. Liver: Unremarkable. Normal in size and attenuation. No suspicious masses. Gallbladder and bile ducts: Unremarkable. No stones or inflammation. No biliary dilatation. Pancreas: Unremarkable. No mass or inflammation. Spleen: Unremarkable. Normal in size. No masses. Adrenal glands: Unremarkable. No nodules. Kidneys: Unremarkable. No suspicious masses, stones, or hydronephrosis. GI tract: Normal in caliber. No sign of mass or inflammation. Surgical suture along the cecal base, likely reflecting sequela of an appendectomy. Vasculature: Abdominal aorta is normal in caliber. Mesenteric arteries are patent. Lymph nodes: No lymphadenopathy. Peritoneum/Abdominal Wall: Unremarkable. No sign of mass or infiltration. No free air or significant free fluid. Pelvis: Unremarkable. Bones: Unremarkable for age. IMPRESSION: No acute findings in the abdomen or pelvis. Please note that all CT scans at this facility use dose modulation, iterative reconstruction, and/or weight-based dosing when appropriate to reduce radiation dose to as low as reasonably achievable. Dictated by Jeff Carrington MD @ 07/09/2024 10:44:26 AM (Electronically Signed)
--- NOTE | 2024-07-09 09:54 | ED_ITS ---
HPI - Abdominal Pain General Chief Complaint: Abdominal Pain Stated Complaint: abdominal pain Time Seen by Provider: 07/09/24 09:35 History of Present Illness HPI narrative: This 34-year-old male comes from clinic because of abdominal pain. He has a history of recurrent abdominal pain with diagnosis of irritable bowel syndrome and partial bowel obstruction. He did have a laparoscopic surgery because of these symptoms and his appendix was removed at that time. He had similar sympto ms about a week ago and was admitted overnight with an NG tube. He states there was not much output from the NG tube and he did not really feel much better. He had an appointment at clinic today and the doctor called the hospitalist to arrange for direct admission but the hospitalist stated that he should come to the emergency department for further evaluation. He arrives here with normal vital signs. He is reporting pain primarily in the left lower quadrant. He states that he is having bowel movements. It had been diarrhea but now is more formed stool. He states that he has not taken any medicines for pain or nausea. Related Data Home Medications ?Medication ?Instructions ?Recorded ?Confirmed dicyclomine 10 mg capsule 10 mg PO QID PRN abdominal pain 07/01/24 07/09/24 Previous Rx's ?Medication ?Instructions ?Recorded ketorolac 10 mg tablet 10 mg PO Q8H 5 days #15 tabs 07/09/24 ondansetron HCl 4 mg tablet 4 mg PO Q6H #15 tabs 07/09/24 Allergies Allergy/AdvReac Type Severity Reaction Status Date / Time bee venom protein (honey bee) Allergy Intermediate Swelling Verified 07/09/24 10:53 Review of Systems Status of ROS Reports: 10 or more systems reviewed and unremarkable except as noted in History and below Narrative Constitutional: No fevers, no weight gain or loss. Eyes: No discharge. No vision changes. HENT: No congestion, no sore throat, no ear pain. Cardiovascular: No chest pain, no palpitations. Respiratory: No shortness of breath, no wheezes, no cough. Gastrointestinal: No vomiting, no diarrhea. Left lower quadrant abdominal pain. Genitourinary: No dysuria, no hematuria. Musculoskeletal: Normal range of motion. Skin: No rashes, no pruritis. Neurological: No dizziness, weakness, sensory change, speech change. Endo/Heme/Allergies: No bruising or bleeding. No polydipsia. Pysch: no suicidality, no anxiety, no insomnia. All other systems reviewed and are negative. [facility] Surgical History History of appendectomy ?Z90.49 - Acquired absence of other specified parts of digestive tract (ICD- 10) History of exploratory laparotomy (09/03/16) ?Z98.890 - Other specified postprocedural states (ICD-10) Social History What is your current living situation?: I presently have a place to live Problems where you live: no known problems Problems where you live details: no known problem In the past 12 months, utilities in danger of being shut off: no In past 12 months, lack of transportation kept you from medical appts, meetings, work, or getting things needed for daily living: no How hard is it for you to pay for the very basics like food, housing, medical care, and heating: not very hard In the past 12 mos, have been you worried that your food would run out before you had money to buy more?: never true In the past 12 mos, the food you bought just didn't last and you didn't have money to buy more?: never true Smoking Status: Never smoker Do you use any of these nicotine containing products: None Second hand tobacco smoke exposure: No How often do you have a drink containing alcohol: monthly or less AUDIT-C Alcohol total score: 1 Non-prescribed substance use: denies use Caffeine: No How often does anyone, including family, friends and others, physically hurt you : never How often does anyone, including family, friends and others, insult or talk down to you: never How often does anyone, including family, friends and others, threaten you with harm: never How often does anyone, including family, friends and others, scream or curse at you: never Exam Narrative: Exam Narrative: Constitutional: Well-developed, well-nourished, no acute distress. HEENT: Normocephalic, atraumatic. Neck: Normal range of motion. Nontender. Supple. Heart: Regular. No murmurs. Normal rate. Intact distal pulses. Lungs: Clear to auscultation. No chest discomfort. No wheezes, rhonchi, or rales. Abdomen: Normal bowel sounds. Pain is localized in the left lower quadrant. No rebound tenderness. Genitalia: Deferred. Back: No midline tenderness. Normal range of motion. Extremities: Normal range of motion. No injury. Skin: Intact. No rash. Warm. No erythema or pallor. Neurologic: No altered sensation. No weakness. Alert and oriented. Psychiatric: No suicidality. No anxiety or depression. No insomnia. Nursing notes and vitals signs are reviewed. Const: Vital Signs, click to edit/add: Vital Signs - 24 hr 07/09/24 09:24 Temperature 98.3 F Pulse Rate [Left P ulse Oximeter] 74 Respiratory Rate 18 Blood Pressure [Ri ght Upper Arm] 119/78 Pulse Oximetry 97 Oxygen Delivery Me thod Room Air Course Vital Signs Vital signs: Initial Vital Signs Temperature 98.3 F 07/09/24 09:24 Temperature Source Temporal Artery Scan 07/09/24 09:24 Pulse Rate 74 07/09/24 09:24 Respiratory Rate 18 07/09/24 09:24 Blood Pressure 119/78 07/09/24 09:24 Blood Pressure Mean 91 07/09/24 09:24 Blood Pressure Position Sitting 07/09/24 09:24 Pulse Oximetry 97 07/09/24 09:24 Oxygen Delivery Method Room Air 07/09/24 09:24 Vital Signs Temperature 98.3 F 07/09/24 09:24 Pulse Rate 74 07/09/24 09:24 Respiratory Rate 18 07/09/24 09:24 Blood Pressure 119/78 07/09/24 09:24 Pulse Oximetry 97 07/09/24 09:24 Oxygen Delivery Method Room Air 07/09/24 09:24 Temperature 98.3 F 07/09/24 09:24 Pulse Rate 74 07/09/24 09:24 Respiratory Rate 18 07/09/24 09:24 Blood Pressure 119/78 07/09/24 09:24 Pulse Oximetry 97 07/09/24 09:24 Oxygen Delivery Method Room Air 07/09/24 09:24 Medications Administered Medications: Discontinued Medications Generic Name Dose Route Start Last Admin Trade Name Freq PRN Reason Stop Dose Admin Ketorolac Tromethamine 15 mg 07/09/24 10:15 07/09/24 10:32 Ketorolac 15 Mg/Ml Inj IVP 07/09/24 10:16 15 mg ONCE ONE Administration MDM - Abdominal Pain MDM Narrative Medical decision making narrative: This patient comes in with abdominal pain as described above. He arrives here with normal vital signs and localizes the pain more in the left lower quadrant. He does have a history of some partial bowel obstruction but is not showing those typical signs or symptoms on exam here today. An IV was established and he did get another CT scan. This shows no acute findings which is an improvement from the previous 1 done about a week ago. Additionally his lab results are also returning normal. The patient did receive an IV dose of Toradol. He is okay to return home. I did provide prescriptions for Toradol and Zofran and recommended that he had fiber to his diet. Lab Data Labs: Lab Results 07/09/24 07/09/24 Range/Units 09:45 10:05 WBC 4.31 L (4.50-11.00) K/uL RBC 5.57 (4.30-5.90) m/uL Hgb 16.1 (13.5-17.5) gm/dL Hct 48.1 (37.0-53.0) % MCV 86 (80-100) fL MCH 29 (26-34) pg MCHC 34 (32-36) gm/dL RDW Coeff of Ga 12.6 (11.5-15.5) % Plt Count 229 (140-440) K/uL Neut % (Auto) 49.4 (42.0-72.0) % Lymph % (Auto) 38.1 (20-44) % [place] % (Auto) 11.1 H (0.0-11.0) % Eos % (Auto) 0.7 (0.0-7.0) % Baso % (Auto) 0.5 (0.0-3.0) % Neut # (Auto) 2.10 (1.7-7.0) K/uL Lymph # (Auto) 1.60 (0.90-2.90) K/uL [place] # (Auto) 0.50 (0.00-0.90) K/UL Eos # (Auto) 0.00 (0.00-0.50) K/uL Baso # (Auto) 0.00 (0.00-0.30) K/uL Abs Immat Gran (auto) 0.00 (0.00-0.30) K/uL Imm/Tot Granulo (auto) 0.2 % Sodium 139 (135-149) mmol/L Potassium 4.2 (3.6-5.1) mmol/L Chloride 101 (96-114) mmol/L Carbon Dioxide 30 (20-32) mmol/L Anion Gap 8 (7-15) mEq/L BUN 17 (5-24) mg/dL Creatinine 1.0 (0.5-1.5) mg/dL Estimated Creat Clear 95.25 Estimated GFR 103 ml/min Glucose 98 (60-115) mg/dL Calcium 9.4 (8.4-10.6) mg/dL Urine Color Yellow (Yellow) Urine Appearance Clear (Clear) Urine pH 7.0 (5.0-8.5) Ur Specific [place] 1.015 (1.000-1.030) Urine Protein Negative (Negative) Urine Glucose (UA) Negative (Negative) Urine Ketones Negative (Negative) Urine Blood Negative (Negative) Urine Nitrite Negative (Negative) Urine Bilirubin Negative (Negative) Urine Urobilinogen 0.2 (0.2-1.0) Ur Leukocyte Esterase Negative (Negative) Urine RBC 0-2 (0-2) Urine WBC 0-2 (0-5) Ur Squamous Epith Cells None (None-Few) Urine Bacteria None (None) Discharge Plan Discharge Clinical Impression: Abdominal pain Patient Disposition: Home, Self-Care Condition: Stable Additional Instructions: Take medications as needed and directed. Follow up with MD or return if worsening symptoms occur. Prescriptions: New ondansetron HCl 4 mg tablet 4 mg PO Q6H Qty: 15 0RF ketorolac 10 mg tablet 10 mg PO Q8H 5 Days Qty: 15 0RF No Action dicyclomine 10 mg capsule 10 mg PO QID PRN (Reason: abdominal pain) Follow Up/Referrals: Jaciel Hwang MD [Primary Care Provider] - Stand Alone Forms: Bouf Info Instructions
[2024-07-09 09:57] LABS: Appearance Urine Clear (Clear); Bilirubin Urine Negative (Negative); Blood Urine Negative (Negative); Color Urine Yellow (Yellow); Glucose Urine Negative (Negative); Ketones Urine Negative (Negative); Leukocyte Esterase Urine Negative (Negative); Nitrite Urine Negative (Negative); Protein Urine Negative (Negative); Specific Gravity Urine 1.015 (1.000-1.030); Urobilinogen Urine 0.2 (0.2-1.0)
[2024-07-09 10:05] LABS: RBC Urine 0-2 (0-2); WBC Urine 0-2 (0-5)
[2024-07-09 10:13] LABS: Basophils Percent Auto 0.5 % (0.0-3.0); Eosinophils Percent Auto 0.7 % (0.0-7.0); Hematocrit 48.1 % (37.0-53.0); Hemoglobin* 16.1 gm/dL (13.5-17.5); Immature Granulocytes Pct Auto 0.2 %; Lymphocytes Percent Auto 38.1 % (20-44); Mean Corpuscular HGB Conc 34 gm/dL (32-36); Mean Corpuscular Hemoglobin 29 pg (26-34); Mean Corpuscular Volume 86 fL (80-100); Monocytes Percent Auto 11.1 % (0.0-11.0); Neutrophils Percent Auto 49.4 % (42.0-72.0); Platelet Count* 229 K/uL (140-440); RDW Coefficient of Variation % 12.6 % (11.5-15.5); Red Blood Count 5.57 m/uL (4.30-5.90); White Blood Count* 4.31 K/uL (4.50-11.00)
--- OUTSIDE RECORDS SUMMARY | 2024-07-09 10:15 | XMS_ITS | Clinical Summary ---
Author Organization [facility] Address [address] [place] [address]. 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
--- OUTSIDE RECORDS SUMMARY | 2024-07-09 10:15 | XMS_ITS | Clinical Summary ---
Author Organization [facility] Address [place], [place] [address] Care Team Providers Care Computer Hardware Technician Name Role Phone Pcp, No Primary Care Provider Unavailabl e Allergies Active Allergy Reactions Criticality Noted Date Comments Hymenoptera Allergenic Extract 12/28 Medications No known medications Active Problems Problem Noted Date Diagnosed Date Non-intractable vomiting with nausea 06/09/2015 Overview (06/09/2015): EGD 06/2015 normal,recommend gastric emptying study Acne 03/05/2008 Immunizations Name Administration Dates Next Due DTP-HIB 05/11/1993, 3,1992,1991 DTaP 03/04/1997 Hepatitis A (Peds) 08/28/2010,09/23/2009 Hepatitis B (Peds) 02/02/2002,11/07/1998, 999 Influenza A (H1N1), Inactiva cynthia (Age >=3 Years) 09/23/2009 Influenza, IIV3 (Age >=3 years) 04/02/2016,08/28 Influenza, IIV4 03/08/2015,08/04/2014 MMR 02/02/2002,05/11/1993 Oral Polio Vaccine 03/04/1997, 3,1992,1991 Tdap 12/28/2010 Typhoid (injectable) 09/23/2009 Family History Medical History Relation Name Comments Good Health Father Good Health Mother Relation Name Status Comments Father Mother Social History Tobacco Use Types Packs/Day Years Used Date Smoking Tobacco: Never Smokeless Tobacco: Never Tobacco Cessation:Counseling Given: Yes Alcohol Use Standard Drinks/Week Comments Yes 0 (1 standard drink = 0.6 oz pur e alcohol) one drink every 3-6 months. 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 Not on file Not on file Not on file Obstetrics History Last Filed Vital Signs Vital Sign Reading Time Taken Comments Blood Pressure 100/63 08/10/2020 8:42 AM MISSILEMAN Pulse 83 08/10/2020 8:42 AM MISSILEMAN Temperature 36.4 C (97.6 F) 11/19/2018 8:45 AM CDT Respiratory Rate 20 07/21/2008 9:17 AM MISSILEMAN Oxygen Saturation 98% 08/10/2020 8:42 AM MISSILEMAN Inhaled Oxygen Concentration - - Weight 63.8 kg (140 lb 9.6 oz) 08/10/2020 8:42 A M MISSILEMAN Height 179.2 cm (5' 10.55) 05/31/2020 11:57 AM MISSILEMAN Body Mass Index 19.86 05/31/2020 11:57 AM MISSILEMAN Plan of Treatment Health Maintenance Due Date Last Done Comments HIV for age 15-65 02/02/2007 Hepatitis C screening for age 18-79 02/02/2010 Depression screening for age 12+ 05/20/2019 05/20/2018, 11/02/2015 Tetanus booster 12/28/2020 12/28/2010 BMI (ht and wt on same day) for age 18+ 05/31/2021 05/31/2020, 11/19/2018, 05/20/2018, Additional history exists COVID-19 vaccine series ( season) 2024 Influenza for age 9-49 03/08/2024 6, 03/08/2015, 08/04/2014, Additional history exists Tdap Completed 12/28/2010 Pneumococcal series for age 6-49 Aged Out No longer eligible based on patient's age to complete this topic Insurance [facility] NAOMI HERNÁNDEZ [id number] [address] [facility] [place] [address] [address] [place] [id number] [employer] Care Teams Computer Hardware Technician Relationship Specialty Start Date End Date Pcp, No . PCP - General 11/28/20
--- OUTSIDE RECORDS SUMMARY | 2024-07-09 10:16 | XMS_ITS | Referral Summary ---
Author Organization [facility] Address [address] [place] [address]. 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
[2024-07-09 10:20] LABS: Slide Review Reflex No
[2024-07-09 10:31] LABS: Chloride* 101 mmol/L (96-114); Potassium* 4.2 mmol/L (3.6-5.1); Sodium* 139 mmol/L (135-149)
[2024-07-09] MEDS: KETOROLAC 15 MG/ML inj IVP (10:32)
[2024-07-09 10:34] LABS: Anion Gap 8 mEq/L (7-15); Blood Urea Nitrogen* 17 mg/dL (5-24); Carbon Dioxide* 30 mmol/L (20-32); Est. Creatinine Clearance* 95.25; Estimated Glomerular Filt Rate 103 ml/min; Glucose* 98 mg/dL (60-115)
[2024-07-09 10:35] LABS: Calcium* 9.4 mg/dL (8.4-10.6)
== END 2024-07-09 11:10 | disposition home or self-care (01) ==
PROVIDERS: Emergency Provider Emergency Medicine Emergency Medical Services; PCP Internal Medicine
DX: R10.9 Unspecified abdominal pain (principal)
CPT/HCPCS: 36415; 74177; 80048; 81001; 85025; 96374; 99283; 99284; J1885; Q9967

== ENCOUNTER 2025-01-17 17:25 | Emergency (ER) | payer OTHER, SELFPAY ==
--- OUTSIDE RECORDS SUMMARY | 2023-11-11 02:30 | XMS_ITS | Continuity of Care Document ---
Author Organization [facility] Address [address] [address] [place] [address] Phone Care Team Providers Care District Captain Name Role Phone Kenneth GARCIA, Kathy Unavailable Unavailable Medications Medication Instructions Dosage Effective Dates (start - stop) Status Comments FIBER GUMMIES (unknown strength) Take 2 gummies by oral every day (4 mg) Not Available - Active dicyclomine 10 mg capsule take 1 capsule by oral route 3 times every day as needed 10 MG - Active Procedures Procedure Date Offic/outpt E&m Estab Low-mod 4 Colonoscopy Flex; Dx (sep Pro) Offic/outpt E&m [facility] Small Bowel PillCam Capsule 1st Day Offic/outpt E&m New [place] Advance Directives Directive Yes / No Effective Date File Name No Information Encounters Encounter Description Practice Location Reason(s) For Visit Diagnoses Date Provider Providers Copied on Encounter Offic/outpt E&m Estab Low-mod [facility], [address] [address], [place], [id number], tel:[phone] [facility] Symptoms or Concerns (chief complaint) Additional Narrative (chief complaint) Lower abdominal pain, unspecifiedPersonal history of other diseases of the digestive system 4 Kenneth Chavez. [address], [place], [place], [id number] , [place]. [phone] Referring Provider: Referral Self, USE FOR SELF REFERRALS. [facility], [address] [address], [place], [place], [id number], [place] tel:[phone] [facility] No Information 4 Tai Montes. [address], [place], [place], [address] , [place]. tel:[phone] Referring Provider: Esequiel Lucero, [address], [place], [address] . tel:[phone] [facility], [address] [address], [place], [place], [id number], [place] tel:[phone] [facility] GI Symptoms or Concerns (chief complaint) Lower abdominal pain, unspecifiedPersonal history of other diseases of the digestive systemOther specified diseases of intestinePersonal history of other diseases of the digestive systemLower abdominal pain, unspecified 4 Mike Iraheta. [address], [facility] [address], [place], [place], [address] , [place]. tel: [phone] Referring Provider: Referral Self, USE FOR SELF REFERRALS. [facility], [address] [address], [place], [place], [id number], [place] tel:[phone] [facility] No Information 4 Wayne Hall. [address], [place], [place], [id number] , [place]. tel:[phone] Offic/outpt E&m New [place] [facility], [address] [address], [place], [place], [address], [place] tel:[phone] [facility] Symptoms or Concerns (chief complaint) Lower abdominal painHx SBO 4 Kenneth Chavez. [address], [place], [place], [id number] , [place]. tel: [phone] Referring Provider: Jaciel Enciso, [address] [place] [address], [address]. tel:[phone] [facility], [address] [address], [place], [place], [id number], [place] tel:[phone] [facility] No Information 4 Wayne Hall. [address] [place] [address], [facility] [address], [place], [place], [id number] , [place]. tel: [phone] [facility], [address] [address], [place], [place], [address], [place] tel:[phone] [facility] Vomiting, unspecified 6 Chalino Martins. [address] [place] [address], [place] [address], [place], [place], [address] , [place]. tel: [phone] [facility], [address] [address], [place], [address], [place] tel:[phone] [facility] No Information 6 Chalino Martins. [address] [place] [address], [place], [id number] , [place]. tel: [phone] Referring Provider: Donnie Burnett, [address] [facility], [place], [address]. tel:[phone] Offic/outpt E&m New Mod-hi [facility], [address] [address], [place], [id number], [place] tel:[phone] [facility] GI Symptoms or Concerns (chief complaint) Vomiting, nausea presence unspecified, unspecified intactability, vomiting of unspecified type 6 Chalino Martins. [address] [place] [address], [facility] [address], [place], [place], [id number] , [place]. tel: [phone] Referring Provider: Rodriguez Enciso, [address] [facility], [place], [address]. tel:[phone] Family History Family Member Type Diagnosis Age At Onset Father Problem (finding) Alive and well Brother Problem (finding) Alive and well Mother Problem (finding) asthma Sister Problem (finding) Alive and well Sister Problem (finding) Asthma Immunizations Vaccine Date Status Comments tetanus toxoid, reduced diphtheria toxoid, and acellular pertussis vaccine, adsorbed administered Note: [facility] b i-directional interface ; Source: Other Registry Influenza, injectable, Madin [place] Canine Kidney, quadrivalent with preservative administered Note: [facility] bi-direct ional interface ; Source: Other Registry Influenza, injectable, Madin [place] Canine Kidney, quadrivalent with preservative administered Note: [facility] bi-direct ional interface ; Source: Other Registry Influenza, injectable, Madin [place] Canine Kidney, quadrivalent with preservative administered Note: [facility] bi-direct ional interface ; Source: Other Registry Influenza, injectable, Madin Annalise Canine Kidney, quadrivalent with preservative administered Note: [facility] bi-direct ional interface ; Source: Other Registry Influenza administered Note: [facility] bi-d irectional interface ; Source: Other Registry Influenza, injectable, Madin [place] Canine Kidney, quadrivalent with preservative administered Note: [facility] bi-direct ional interface ; Source: Other Registry Influenza, injectable, Madin Annalise Canine Kidney, quadrivalent with preservative administered Note: [facility] bi-direct ional interface ; Source: Other Registry Influenza administered Note: [facility] bi-d irectional interface ; Source: Other Registry Influenza administered Note: [facility] bi-d irectional interface ; Source: Other Registry Afluria Qd administered Note: [facility] bi-directional interface ; Source: Other Registry Afluria Qd administered Note: [facility] bi-directional interface ; Source: Other Registry Engerix-B administered Note: [facility] bi-d irectional interface ; Source: Other Registry Afluria Qd administered Note: [facility] bi-directional interface ; Source: Other Registry Influenza, seasonal, injectable administe red Note: [facility] bi- directional interface ; Source: Other Registry tetanus toxoid, reduced diphtheria toxoid, and acellular pertussis vaccine, adsorbed administered Note: [facility] b i-directional interface ; Source: Other Registry Havrix pediatric administered Note: [facility] bi-directional interface ; Source: Other Registry Influenza, seasonal, injectable administe red Note: [facility] bi- directional interface ; Source: Other Registry Havrix pediatric administered Note: [facility] bi-directional interface ; Source: Other Registry typhoid Vi capsular polysaccharide vaccine administered Note: [facility] bi-dir ectional interface ; Source: Other Registry Novel [id number], all formulations administered Note: [facility] bi-direct ional interface ; Source: Other Registry Influenza, seasonal, injecta ble, preservative free administered Note: [facility] bi-direct ional interface ; Source: Other Registry Influenza, seasonal, injectable administe red Note: [facility] bi- directional interface ; Source: Other Registry measles, mumps and rubella v irus vaccine administered Note: [facility] bi-direct ional interface ; Source: Other Registry hepatitis B vaccine, unspeci fied formulation administered Note: [facility] bi-direct ional interface ; Source: Other Registry hepatitis B vaccine, unspeci fied formulation administered Note: [facility] bi-direct ional interface ; Source: Other Registry hepatitis B vaccine, unspeci fied formulation administered Note: [facility] bi-direct ional interface ; Source: Other Registry diphtheria, tetanus toxoids and acellular pertussis vaccine administered Note: [facility] b i-directional interface ; Source: Other Registry Haemophilus influenzae type b vaccine, conjugate unspecified formulation administered Note: [facility] bi-direct ional interface ; Source: Other Registry measles, mumps and rubella v irus vaccine administered Note: [facility] bi-direct ional interface ; Source: Other Registry Haemophilus influenzae type b vaccine, conjugate unspecified formulation administered Note: [facility] bi-direct ional interface ; Source: Other Registry diphtheria, tetanus toxoids and acellular pertussis vaccine administered Note: [facility] b i-directional interface ; Source: Other Registry diphtheria, tetanus toxoids and acellular pertussis vaccine administered Note: [facility] b i-directional interface ; Source: Other Registry Haemophilus influenzae type b vaccine, conjugate unspecified formulation administered Note: [facility] bi-direct ional interface ; Source: Other Registry diphtheria, tetanus toxoids and acellular pertussis vaccine administered Note: [facility] b i-directional interface ; Source: Other Registry Haemophilus influenzae type b vaccine, conjugate unspecified formulation administered Note: [facility] bi-direct ional interface ; Source: Other Registry diphtheria, tetanus toxoids and acellular pertussis vaccine administered Note: [facility] b i-directional interface ; Source: Other Registry Payers Payer name Insurance type Covered alliance party ID Authormaiaa mukesh(s) R CI [id number] Social History Type Description Quantity Date Captured Comments Alcohol Use Details No Caffeine Use Details Unknown Tobacco Use Status undefined Smoking Status Never smoker Non-Smoking Tobacco Use Details : No Details Available : No Details Available Sex Male Vital Signs Date / Time: Height Weight BMI Pulse Rate Blood Pressure Temperature Respiratory Rate Body Surface Area Head Circumference Head Circ. Percentile Wt./Jaquan. Percentile BMI percentile Pulse Ox Inhaled Ox 7:08 AM 72.00 in 65.771 kg (145.00 lbs) 19.6 6 kg/m eter (2) 80 /min 117/67 mm[Hg] Chief Complaint And Reason For Visit From encounter dated '11/11/2023 07:30'. GI Symptoms or Concerns (chief complaint). Description: Vargas Mcfadden is pleasant 33-year-old male who presents for follow-up. He has history of small- bowel obstruction in 2013 and 2016 of unclear etiology, please refer to previous note for details. He was seen by me in Aug 2023 for lower abdominal pain. Since last visit, we did a colonoscopy which was negative except for tortuous sigmoid. He has also had prior cross sectional imaging and laboratory evaluations that were negative. Today, patient states his pain has improved mildly and is usually very tolerable. Severity is 1-2/10. Occasionally, he would have worsening pain but only lasts shortly. Doing physical activity and bearing down during bowel movements will exacerbate the pain sometimes. He has been taking fiber gummies daily andthis has helped him with regulating stools (was going 2-3 days before a BM), now 1 per day. Denies any n/v, diarrhea, reflux, GI bleeding or weight loss. He denies any family history of GI diseases or malignancy. Denies any current tobacco, alcohol or illicit drug use. Additional Narrative (chief complaint). Description: Briefly about his SBO history, he was hospitalized in 2013 with SBO that was managed medically and symptoms subsequently resolved. He had undergone extensive evaluations in the past including upper GI with small-bowel follow-through in May 2015, EGD in Jun 2015, gastric emptying study in June 2015 and laboratory tests such as celiac diseaseserologies, TSH, Giardia which were all negative. Patient was again hospitalized in 2016 for another small-bowel obstruction of unclear etiology. He subsequently had an exploratory laparotomy and reportedly were found to have some adhesions in his abdominal cavity. He also had an empiric appendectomy during this. It is unclear what had caused his adhesions as he has not had any prior diagnosis orsurgeries. Reason For Referral Reason For Referral No Information Plan Of Treatment Date Type Action Status Referral Ordered: Colonoscopy Appointment date/timeframe: 08/29/2023 ordered History Of Present Illness Encounter Date Complaint History Of Prese nt Illness GI Symptoms or Concerns Vargas Mcfadden is pleasant 33-year-old male who presents for follow-up. He has history of small-bowel obstruction in 2013 and 2016 of unclear etiology, please refer to previous note for details. He was seen by me in Aug 2023 for lower abdominal pain. Since last visit, we did a colonoscopy which was negative except for tortuous sigmoid. He has also had prior cross sectional imaging and laboratory evaluations that were negative. Today, patient states his pain has improved mildly and is usually very tolerable. Severity is 1-2/10. Occasionally, he would have worsening pain but only lasts shortly. Doing physical activity and bearing down during bowel movements will exacerbate the pain sometimes. He has been taking fiber gummies daily and this has helped him with regulating stools (was going 2-3 days before a BM), now 1 per day. Denies any n/v, diarrhea, reflux, GI bleeding or weight loss. He denies any family history of GI diseases or malignancy. Denies any current tobacco, alcohol or illicit drug use. Additional Narrative Briefly abo ut his SBO history, he was hospitalized in 2013 with SBO that was managed medically and symptoms subsequently resolved. He had undergone extensive evaluations in the past including upper GI with small-bowel follow-through in May 2015, EGD in Jun 2015, gastric emptying study in June 2015 and laboratory tests such as celiac disease serologies, TSH, Giardia which were all negative. Patient was again hospitalized in 2016 for another small-bowel obstruction of unclear etiology. He subsequently had an exploratory laparotomy and reportedly were found to have some adhesions in his abdominal cavity. He also had an empiric appendectomy during this. It is unclear what had caused his adhesions as he has not had any prior diagnosis or surgeries. GI Symptoms or Concerns GI Symptoms or Concerns I had th e pleasure of meeting Vargas Mcfadedn today in clinic for consultation at the request of Dr. Rodriguez Pederson for evaluation of his GI symptoms.Patient is a pleasant 33-year-old male with history of small-bowel obstruction in 2013 and 2016 of unclear etiology who reports having constant lower abdominal pain for the past month. Patient states that the pain is constant, mostly in the lower abdominal area and radiates across the abdomen. Severity is 2/10 but we will go up to 5-6/10 throughout the day. Doing physical activity and bearing down during bowel movements we will exacerbate the pain. he recently saw his PCP for this and routine labs including CBC, CMP, CRP and UA were negative. He reportedly also had a CT scan in the last 2 weeks, we do not have record of this, that was also negative. He was given Toradol to help with the pain, but this has not worked.Briefly about his SBO history, he was hospitalized in 2013 with SBO that was managed medically and symptoms subsequently resolved. He had undergone extensive evaluations in the past including upper GI with small-bowel follow-through in May 2015, EGD in Jun 2015, gastric emptying study in June 2015 and laboratory tests such as celiac disease serologies, TSH, Giardia which were all negative. Patient was again hospitalized in 2017 for another small-bowel obstruction of unclear etiology. He subsequently had an exploratory laparotomy and reportedly were found to have some adhesions in his abdominal cavity. He also had an empiric appendectomy during this. It is unclear what had caused his adhesions as he has not had any prior diagnosis or surgeries. He denies any family history of GI diseases or malignancy. Denies any current tobacco, alcohol or illicit drug use. GI Symptoms or Concerns The symp toms began 2 years ago. The symptoms are reported as being moderate. The symptoms occur randomly. The location is upper GI tract. Aggravating factors include eating. He states the symptoms are chronic. Mr. Mcfadden is a 25-year-old young man with a history of small bowel obstruction (2013), who is seen to discuss symptoms of vomiting.He reports several year history of GI complaints. Initially, this consisted of a poor appetite and somewhat irregular stools with a tendency towards constipation. These symptoms seemingly began in 2010.However, in 2013, he was hospitalized with a small bowel obstruction. The symptoms were managed medically and subsequently resolved. However, ever since this time he has had trouble with effortless vomiting after eating. The symptoms tend to come and go and last anywhere from a month to three months at a time. He states that he will be able to tolerate only a few small bites of food and then will immediately need to run to the bathr Functional Status Date Functional Assessmen t No Information Instructions Date Instruction Additional Infor elisa It was a pleasure me eting you today, as we discussed in clinic: You can try [id number] peppermint oil capsules such as ib guard to see if this will help with your abdominal pain Continue taking daily fiber gummies On days when you feel backed up, you should take a dose or two of MiraLax If you continue to have persistent or worsening pain, then let me know, we can consider starting you on a daily medication such as amitriptyline or nortriptyline to help with the pain.Follow-up in clinic as needed. Related to Lower abdominal pain, unspecified Colon Cancer Prevention Related to Lower abdominal pain, unspecified It was a pleasure me eting you today, as we discussed in clinic: We will try to obtain the CT scan records from [facility]. We should also plan to do a colonoscopy given you have never had this before to rule out any potential causes for your abdominal pain. My team will contact you to schedule the procedure.In the meantime, I am going to send a prescription for dicyclomine, which is an antispasmodic and hopefully will ease your pain. You can also try xesa-vab-aajgpwd peppermint oil capsules such as IB JOLLY to see if this helps as well. Follow up in clinic in 3 months if symptoms persists. Related to Lower abdominal pain 1.) The small intest ine capsule study will help exclude small intestine Crohn's disease which could explain why you had a small bowel obstruction in 2013 and possibly why you continue to have episodic vomiting.2.) If the capsule study is normal then I might suggest a consultation in our [facility] to discuss whether further testing for gastroparesis would be reasonable. Related to Vomiting, nausea presence unspecified, unspecified intactability, vomiting of unspecified type Assessments Type Assessment Date assessment Lower abdominal pain, unspecifie d assessment Personal history of other diseas es of the digestive system impression In summary, a [facility] 33-year-old male with history of SBO of unknown etiology presenting for follow-up of lower abdominal pain. Colonoscopy after last visit was unremarkable except for tortuous sigmoid. His pain is mild and tolerable. Fiber gummies have helped regulate his bowels but still has occasional constipation. I suspect that his symptoms is most likely related to visceral hypersensitivity or IBS. He will peppermint oil and use dicyclomine as needed. If symptoms worsen, then we can consider TCA therapy. Patient Care Teams Name Effective Dates (start - stop) Status Members No Information
--- OUTSIDE RECORDS SUMMARY | 2023-11-11 02:30 | XMS_ITS | Continuity of Care Document ---
Author Organization [facility] Address [address] [address] [place] [address] Phone Care Team Providers Care Inspector [employer] Name Role Phone Kenneth GARCIA, Kathy Unavailable [...] Flex; Dx (sep Pro) Offic/outpt E&m [facility] [place] Small Bowel PillCam Capsule 1st Day Offic/outpt E&m [place] Advance Directives Directive Yes / No Effective Date File Name No Information Encounters Encounter Description Practice Location Reason(s) For Visit Diagnoses Date Provider Providers Copied on Encounter Offic/outpt E&m Estab Low-mod [facility], [address] [address], [place], [id number], tel:[phone] [facility] GI Symptoms or Concerns (chief complaint) Additional Narrative (chief complaint) Lower abdominal pain, unspecifiedPersonal history of other diseases of the digestive system 4 Kenneth Chavez. [address], [place], [place], [id number] , [place]. [phone] Referring Provider: Referral Self, USE FOR SELF REFERRALS. [facility], [address] [address], [place], [place], [id number], [place] tel:[phone] [facility] No Information 4 Tai Montes. [address], [place], [place], [id number] , [place]. tel:[phone] Referring Provider: Esequiel Lucero, [address], [place], [address] . tel:[phone] [facility], [address] [address], [place], [id number], [place] tel:[phone] [facility] GI Symptoms or Concerns (chief complaint) Lower abdominal pain, unspecifiedPersonal history of other diseases of the digestive systemOther specified diseases of intestinePersonal history of other diseases of the digestive systemLower abdominal pain, unspecified 4 Mike Iraheta. [address], [facility] [address], [place], [place], [id number] , [place]. tel:[phone] Referring Provider: Referral Self, USE FOR SELF REFERRALS. [facility], [address] [address], [place], [place], [id number], [place] tel:[phone] [facility] No Information 4 Wayne Hall. [address], [place], [place], [id number] , [place]. tel:[phone] Offic/outpt E&m [place], [address] [address], [place], [place], [address], [place] tel:[phone] [facility] GI Symptoms or Concerns (chief complaint) Lower abdominal painHx SBO 4 Kenneth Chavez. [address], [place], [place], [address] , [place]. tel: [phone] Referring Provider: Jaciel Enciso, [address] [place] [address], [address]. tel:[phone] [facility], [address] [address], [place], [id number], [place] tel:[phone] [facility] No Information 4 Wayne Hall. [address] [place] [address], [facility] [address], [place], [place], [id number] , [place]. tel: [phone] [facility], [address] [address], [place], [place], [id number], [place] tel:[phone] [facility] Vomiting, unspecified 6 Chalino Martins. [address] [place] [address], [place] [address], [place], [place], [id number] , [place]. tel: [phone] [facility], [address] [address], [place], [id number], [place] tel:[phone] [facility] No Information 6 Chalino Martins. [address] [place] [address], [place], [id number] , [place]. tel: [phone] Referring Provider: Donnie Burnett, [address], [place], [address]. tel:[phone] Offic/outpt E&m [place] [facility], [address] [address], [place], [place], [id number], [place] tel:[phone] [facility] GI Symptoms or Concerns (chief complaint) Vomiting, nausea presence unspecified, unspecified intactability, vomiting of unspecified type 6 Chalino Martins. [address] [place] [address], [facility] [address], [place], [id number] , [place]. tel: [phone] Referring Provider: Rodriguez Enciso, [address] [facility], [place], [address]. tel:[phone] Family History Family Member Type Diagnosis Age At Onset Father Problem (finding) Alive and well Brother Problem (finding) Alive and well Mother Problem (finding) asthma Sister Problem (finding) Alive and well Sister Problem (finding) Asthma Immunizations Vaccine Date Status Comments tetanus toxoid, reduced diphtheria toxoid, and acellular pertussis vaccine, adsorbed administered Note: [facility] b i-directional interface ; Source: Other Registry Influenza, injectable, Madin Spiceland Canine Kidney, quadrivalent with preservative administered Note: [facility] bi-direct ional interface ; Source: Other Registry Influenza, injectable, Madin Spiceland Canine Kidney, quadrivalent with preservative administered Note: [facility] bi-direct ional interface ; Source: Other Registry Influenza, injectable, Madin Spiceland Canine Kidney, quadrivalent with preservative administered Note: [facility] bi-direct ional interface ; Source: Other Registry Influenza, injectable, Madin Annalise Canine Kidney, quadrivalent with preservative administered Note: [facility] bi-direct ional interface ; Source: Other Registry Influenza administered Note: [facility] bi-d irectional interface ; Source: Other Registry Influenza, injectable, Madin Spiceland Canine Kidney, quadrivalent with preservative administered Note: [...] ectional interface ; Source: Other Registry Novel [id number], all formulations administered Note: [facility] bi-direct ional [...] Registry Payers Payer name Insurance type Covered libertarian ID Authormaiaa mukesh(s) R CI [id number] Social History Type Description Quantity Date Captured [...] had th e pleasure of meeting Vargas Mcfadden today in clinic for consultation at the [...] we discussed in clinic: You can try yuve-jgi-ehvjxjb peppermint oil capsules such as ib guard [...] to obtain the CT scan records from [facility]. We should also plan to do a colonoscopy given you have never had this before to rule out any potential causes for your abdominal pain. My team will contact you to schedule the procedure.In the meantime, I am going to send a prescription for dicyclomine, which is an antispasmodic and hopefully will ease your pain. You can also try mahu-cuk-moukzpo peppermint oil capsules such as IB JOLLY [...] the digestive system impression In summary, a [facility] 33-year-old male with history of SBO [...]
--- OUTSIDE RECORDS SUMMARY | 2025-01-17 17:27 | XMS_ITS | Clinical Summary ---
Author Organization [facility] Address [address] [place] [address]. 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
--- OUTSIDE RECORDS SUMMARY | 2025-01-17 17:27 | XMS_ITS | Clinical Summary ---
Author Organization [email or web address] Address [address] [place] [address] Care Team Providers Care Product Communications Manager Name Role Phone Pcp, No Primary Care Provider Unavailabl e Allergies Active Allergy Reactions Criticality Noted Date Comments Hymenoptera Allergenic Extract 12/28 Medications No known medications Active Problems Problem Noted Date Diagnosed Date Non-intractable vomiting with nausea 06/09/2015 Overview (06/09/2015): EGD 06/2015 normal,recommend gastric emptying study Acne 03/05/2008 Immunizations Immunization Administration Dates Next Due DTP-HIB 05/11/1993, 3,1992,1991 [...] on file Legal Sex Male 5:24 AM PRECINCT I POLICE SERGEANT Gender Identity Not on file Sexual Orientation Not on file 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 Not on file Not on file Obstetrics History Last Filed Vital Signs Vital Sign Reading Time Taken Comments Blood Pressure 100/63 08/10/2020 8:42 AM PRECINCT I POLICE SERGEANT Pulse 83 08/10/2020 8:42 AM PRECINCT I POLICE SERGEANT Temperature 36.4 C (97.6 F) 11/19/2018 8:45 AM CDT Respiratory Rate 20 07/21/2008 9:17 AM PRECINCT I POLICE SERGEANT Oxygen Saturation 98% 08/10/2020 8:42 AM PRECINCT I POLICE SERGEANT Inhaled Oxygen Concentration - - Weight 63.8 kg (140 lb 9.6 oz) 08/10/2020 8:42 A M PRECINCT I POLICE SERGEANT Height 179.2 cm (5' 10.55) 05/31/2020 11:57 AM PRECINCT I POLICE SERGEANT Body Mass Index 19.86 05/31/2020 11:57 AM PRECINCT I POLICE SERGEANT Plan of Treatment Health Maintenance Due Date Last Done Comments HIV for age 15-65 02/02/2007 Hepatitis C screening for age 18-79 02/02/2010 Depression screening for age 12+ 05/20/2019 05/20/2018, 11/02/2015 Tetanus booster 12/28/2020 12/28/2010 BMI (ht and wt on same day) for age 18+ 05/31/2021 05/31/2020, 11/19/2018, 05/20/2018, Additional history exists COVID-19 vaccine series ( season) 2024 Influenza Vaccine (#1) 2025 6, 03/08/2015, 08/04/2014, Additional history exists Hepatitis B series for 19+ Completed 02/02, 11/07/1998, 09/28/1998 Pneumococcal series for age 6-49 Aged Out No longer eligible based on patient's age to complete this topic Insurance [facility] [place]OMI HERN[place]NDEZ [id number] [place] [employer] Care Teams Product Communications Manager Relationship Specialty Start Date End Date Pcp, No . PCP - General 11/28/20
[2025-01-17 18:11] VITALS: BP 98/63; PULSE 67; RESP 18; TEMP 36.9; O2SAT 98; BMI 19.0
--- NOTE | 2025-01-17 18:25 | CRLHL7_ITS ---
For Patients: As a result of the Cures Act, medical imaging exams and procedure reports are released immediately into your electronic medical record. You may view this report before your referring provider. If you have questions, please contact your health care provider. Indication: Right thumb pain. Technique: Right thumb 3 views. Comparison: None. Findings: Bones: Alignment is normal. No acute fracture or suspicious bone lesion. Joint spaces: Unremarkable. Soft tissues: Unremarkable. Impression: No evidence of an acute bony abnormality. Dictated by Sonido Pickens MD @ 01/17/2025 8:13:05 PM (Electronically Signed)
--- NOTE | 2025-01-17 20:20 | ED.UPPEXIN ---
HPI - Extremity Injury (Upper) General Time Seen by Provider: 20:20 Date Seen: 01/17/25 Chief Complaint: Extremity Pain/Injury, Upper Stated Complaint: broken thumb Time Seen by Provider: 01/17/25 20:20 Source: patient and RN notes reviewed Mode of arrival: ambulatory Limitations: no limitations History of Present Illness HPI narrative: This 34-year-old male is coming in with right thumb injury. He was setting of his crossbow, he had the force of the crossbow come back in hit him in the thumb. There were 2 small skin areas that got abraded, did not bleed much. The thumb felt like it was maybe displaced, quite swollen. He did wrap it. He thought maybe he should have it x-rayed. complaint: injury to: right and finger (Thumb) Related Data Home Medications ?Medication ?Instructions ?Recorded ?Confirmed dicyclomine 10 mg capsule 10 mg PO QID PRN abdominal pain 07/01/24 12/01/24 Previous Rx's ?Medication ?Instructions ?Recorded ketorolac 10 mg tablet 10 mg PO Q8H 5 days #15 tabs 07/09/24 ondansetron HCl 4 mg tablet 4 mg PO Q6H #15 tabs 07/09/24 Allergies Allergy/AdvReac Type Severity Reaction Status Date / Time bee venom protein (honey bee) Allergy Intermediate Swelling Verified 12/01/24 11:18 Review of Systems Narrative: As per HPI. [facility] PFS Surgical History History of appendectomy ?Z90.49 - Acquired absence of other specified parts of digestive tract (ICD-10) History of exploratory laparotomy (09/03/16) ?Z98.890 - Other specified postprocedural states (ICD-10) Social History What is your current living situation?: I presently have a place to live Problems where you live: no known problems Problems where you live details: no known problem In the past 12 months, utilities in danger of being shut off: no In past 12 months, lack of transportation kept you from medical appts, meetings, work, or getting things needed for daily living: no How hard is it for you to pay for the very basics like food, housing, medical care, and heating: not very hard In the past 12 mos, have been you worried that your food would run out before you had money to buy more?: never true In the past 12 mos, the food you bought just didn't last and you didn't have money to buy more?: never true Smoking Status: Never smoker Do you use any of these nicotine containing products: None Second hand tobacco smoke exposure: No How often do you have a drink containing alcohol: monthly or less AUDIT-C Alcohol total score: 1 Non-prescribed substance use: denies use Caffeine: No How often does anyone, including family, friends and others, physically hurt you: never How often does anyone, including family, friends and others, insult or talk down to you: never How often does anyone, including family, friends and others, threaten you with harm: never How often does anyone, including family, friends and others, scream or curse at you: never Exam Const: Vital Signs, click to edit/add: Vital Signs - 24 hr 01/17/25 18:11 Temperature 98.4 F Pulse Rate [Right Radial] 67 Respiratory Rate 18 Blood Pressure [Le ft Upper Arm] 98/63 Pulse Oximetry 98 Oxygen Delivery Me thod Room Air This 34-year-old male is alert, interactive, no apparent distress. His right thumb has 2 little small defects in the skin where it is abraded, not actively bleeding. These were cleaned off, there is nothing to repair. These are small almost little circular areas in the center of the thumb on the dorsal surface, just beyond the IP joint and 1 just proximal to the IP joint. The thumb itself is swollen, looks like it might have some mild bruising, small little very tiny subungual bruise distally center of the nail bed, very small. He has pain when I attempt to manipulate the IP joint but there is no dislocation clinically or on the x-ray. X-rays had been ordered and have been reviewed, I do not see any acute fracture in the radiology over read does agree that there is no fracture. Kemar is aware of this. Documenting provider has reviewed patient's vital signs: yes Course Course ED Course: Did clean his wounds with sterile saline, had nursing staff bandage with bacitracin. Frog splint applied for comfort. Will discharge to home. Vital Signs Vital signs: Initial Vital Signs Temperature 98.4 F 01/17/25 18:11 Temperature Source Temporal Artery Scan 01/17/25 18:11 Pulse Rate 67 01/17/25 18:11 Pulse Rhythm Regular 01/17/25 18:11 Pulse Strength 3+ Normal 01/17/25 18:11 Respiratory Rate 18 01/17/25 18:11 Blood Pressure 98/63 01/17/25 18:11 Blood Pressure Mean 74 01/17/25 18:11 Blood Pressure Position Sitting 01/17/25 18:11 Pulse Oximetry 98 01/17/25 18:11 Oxygen Delivery Method Room Air 01/17/25 18:11 Vital Signs Temperature 98.4 F 01/17/25 18:11 Pulse Rate 67 01/17/25 18:11 Respiratory Rate 18 01/17/25 18:11 Blood Pressure 98/63 01/17/25 18:11 Pulse Oximetry 98 01/17/25 18:11 Oxygen Delivery Method Room Air 01/17/25 18:11 Temperature 98.4 F 01/17/25 18:11 Pulse Rate 67 01/17/25 18:11 Respiratory Rate 18 01/17/25 18:11 Blood Pressure 98/63 01/17/25 18:11 Pulse Oximetry 98 01/17/25 18:11 Oxygen Delivery Method Room Air 01/17/25 18:11 MDM - Extremity Injury (Upper) Imaging Data XR right thumb: Attestation: I have reviewed the pertinent imaging results. Radiologist's impression: Patient: JAGDISH BAHENA Facility:?[facility] Patient ID:?[id number] Site Patient ID:?[id number]. Site :?[id number] Study:?XRay-Extremity Right THUMB 3 VIEWS-01/17/2025 7:26:19 PM Ordering Physician:?PROVIDER TEMP Final Report: Indication: Right thumb pain. Technique: Right thumb 3 views. Comparison: None. Findings: Bones: Alignment is normal. No acute fracture or suspicious bone lesion. Joint spaces: Unremarkable. Soft tissues: Unremarkable. Impression: No evidence of an acute bony abnormality. Dictated by Sonido Pickens MD @ 01/17/2025 8:13:05 PM (Electronic Signature) Discharge Plan Discharge Clinical Impression: Contusion of right thumb Qualifiers: Encounter type: initial encounter Damage to nail status: without damage Qualified Code(s): S60.011A - Contusion of right thumb without damage to nail, initial encounter Patient Disposition: Home, Self-Care Condition: Stable Instructions: Contusion in Adults (ED) Additional Instructions: Use Bacitracin and bandages to the small areas of injury to the skin. Use the splint as needed for comfort, fine to use your thumb as you are able to. Recommend ice and elevation as much as able to next couple of days to help decrease pain and swelling. If your thumb is not starting to feel better within the next week, recommend follow up with orthopedics; can check with local orthopedics at [phone]. Can work without restrictions as long as they will allow you to use the thumb splint as needed for comfort. You obviously need to have wound bandage in be able to keep them clean and dry until they are healed. If you cannot use your splint on your thumb, will need to follow-up with your primary care provider for further evaluation and monitoring of this injury. Activity Level: Activity as Tolerated Prescriptions: No Action dicyclomine 10 mg capsule 10 mg PO QID PRN (Reason: abdominal pain) ondansetron HCl 4 mg tablet 4 mg PO Q6H Qty: 15 0RF ketorolac 10 mg tablet 10 mg PO Q8H 5 Days Qty: 15 0RF Follow Up/Referrals: Jaciel Hwang MD [Primary Care Provider, Internal Medicine] Stand Alone Forms: [employer] Info Instructions
[2025-01-17 20:48] VITALS: BP 98/63; PULSE 67; RESP 18; TEMP 36.9
== END 2025-01-17 20:54 | disposition home or self-care (01) ==
LOC: ED 20:46
PROVIDERS: Emergency Provider Family Medicine; PCP Internal Medicine
DX: S60.011A Contusion of right thumb without damage to nail, initial encounter (principal); W22.8XXA Striking against or struck by other objects, initial encounter
CPT/HCPCS: 73140; 99282; 99283

== ENCOUNTER 2025-02-19 09:05 | Emergency (ER) | payer OTHER, SELFPAY ==
--- OUTSIDE RECORDS SUMMARY | 2025-02-19 09:08 | XMS_ITS | Clinical Summary ---
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 Not on file Not on file Not on file Obstetrics History Last Filed Vital Signs Vital Sign Reading Time Taken Comments Blood Pressure 100/63 08/10/2020 8:42 AM TIMBER SPOTTER Pulse 83 08/10/2020 8:42 AM TIMBER SPOTTER Temperature 36.4 C (97.6 F) 11/19/2018 8:45 AM CDT Respiratory Rate 20 07/21/2008 9:17 AM TIMBER SPOTTER Oxygen Saturation 98% 08/10/2020 8:42 AM TIMBER SPOTTER Inhaled Oxygen Concentration - - Weight 63.8 kg (140 lb 9.6 oz) 08/10/2020 8:42 A M TIMBER SPOTTER Height 179.2 cm (5' 10.55) 05/31/2020 11:57 AM TIMBER SPOTTER Body Mass Index 19.86 05/31/2020 11:57 AM TIMBER SPOTTER Plan of Treatment Health Maintenance Due Date [...] patient's age to complete this topic Insurance [facility] [place]OM[place] H[place]NDEZ [id number] [facility] [employer] Care Teams Inspector Filter Tip Relationship Specialty Start Date End Date Pcp, No . PCP - General 11/28/20
--- OUTSIDE RECORDS SUMMARY | 2025-02-19 09:08 | XMS_ITS | Clinical Summary ---
Author Organization [place] Address [address] [place] [address]. 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
[2025-02-19 09:19] VITALS: BP 116/88; PULSE 82; RESP 16; TEMP 36.6; O2SAT 97; BMI 18.3
--- NOTE | 2025-02-19 09:36 | CRLHL7_ITS ---
For Patients: As a result of the Century Cures Act, medical imaging exams and procedure reports are released immediately into your electronic medical record. You may view this report before your referring provider. If you have questions, please contact your health care provider. INDICATION: Mid abdominal pain with a history of bowel obstruction. COMPARISON: 07/01/2024, 07/09/2024 TECHNIQUE: CT of the abdomen and pelvis with intravenous contrast. Multiplanar axial, coronal, and sagittal reformats were reconstructed. Contrast: x. FINDINGS: Lung bases: Normal. Liver: Normal. No mass. Gallbladder and bile ducts: Normal gallbladder. No bile duct dilation. Pancreas: Normal. Spleen: Normal. Adrenal glands: Normal. Kidneys: Normal parenchyma. No cyst or solid mass. No calculi. No urinary tract dilation. Urinary bladder: Normal. Pelvis: No cyst or mass. Vessels: Normal. Bowel: No dilated or inflamed bowel. Appendectomy. Moderate stool burden. Lymph nodes: No adenopathy. Peritoneum: No ascites. Abdominal wall: No hernia. Bones: No fractures. Transitional lumbosacral segment. No focal worrisome bone lesions. IMPRESSION: Normal CT of the abdomen and pelvis. Please note that all CT scans at this facility use dose modulation, iterative reconstruction, and/or weight-based dosing when appropriate to reduce radiation dose to as low as reasonably achievable. Dictated by Niya Tapia MD @ 02/19/2025 10:19:25 AM (Electronically Signed)
--- NOTE | 2025-02-19 09:38 | ED_ITS ---
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 He did have 1 exploratory laparotomy and lysis of adhesion it sounds like. The patient reports couple days ago having abdominal pain distension. He let it ride for a day or 2 and today presents to ED as his pain is continued. Seems to wax and wane in terms of intensity. He is still past minimal flatus but some. He had a bowel movement yesterday. He reports that he did have flatus and bowel movement with his bowel obstructions last time as well. He has had no rigors chills. He has not been vomiting. 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 Related Data Home Medications ?Medication ?Instructions ?Recorded ?Confirmed No Known Home Medications 02/19/2502/05 Allergies Allergy/AdvReac Type Severity Reaction Status Date / Time bee venom protein (honey bee) Allergy Intermediate Swelling Verified 02/17/25 13:38 Review of Systems Status of ROS: Reports: 6 or more systems reviewed and unremarkable except as noted in History and below PFSH PFS Surgical History History of appendectomy ?Z90.49 - Acquired absence of other specified parts of digestive tract (ICD-1 0) History of exploratory laparotomy (09/03/16) ?Z98.890 - Other specified postprocedural states (ICD-10) Social History What is your current living situation?: I presently have a place to live Problems where you live: no known problems Problems where you live details: no known problem In the past 12 months, utilities in danger of being shut off: no In past 12 months, lack of transportation kept you from medical appts, meetings, work, or getting things needed for daily living: no How hard is it for you to pay for the very basics like food, housing, medical care, and heating: not very hard In the past 12 mos, have been you worried that your food would run out before you had money to buy more?: never true In the past 12 mos, the food you bought just didn't last and you didn't have money to buy more?: never true Smoking Status: Never smoker Do you use any of these nicotine containing products: None Second hand tobacco smoke exposure: No How often do you have a drink containing alcohol: monthly or less AUDIT-C Alcohol total score: 1 Non-prescribed substance use: denies use Caffeine: No How often does anyone, including family, friends and others, physically hurt you : never How often does anyone, including family, friends and others, insult or talk down to you: never How often does anyone, including family, friends and others, threaten you with harm: never How often does anyone, including family, friends and others, scream or curse at you: never Exam Narrative: Exam Narrative: Objective: Vital signs within normal limits afebrile Alert orient x3 knows no distress No scleral icterus Neck is supple Chest clear pulse regular abdomen soft not distended. Bowel sounds hypoactive but present. Extremities are no edema Neurologic nonfocal. Const: Vital Signs, click to edit/add: Vital Signs - 24 hr 02/19/25 09:19 Temperature 97.8 F Pulse Rate [Pulse Oximeter] 82 Respiratory Rate 16 Blood Pressure [Ri ght Upper Arm] 116/88 Pulse Oximetry 97 Oxygen Delivery Me thod Room Air Course Vital Signs Vital signs: Initial Vital Signs Temperature 97.8 F 02/19/25 09:19 Temperature Source Temporal Artery Scan 02/19/25 09:19 Pulse Rate 82 02/19/25 09:19 Respiratory Rate 16 02/19/25 09:19 Blood Pressure 116/88 02/19/25 09:19 Blood Pressure Mean 97 02/19/25 09:19 Blood Pressure Position Supine 02/19/25 09:19 Pulse Oximetry 97 02/19/25 09:19 Oxygen Delivery Method Room Air 02/19/25 09:19 Vital Signs Temperature 97.8 F 02/19/25 09:19 Pulse Rate 82 02/19/25 09:19 Respiratory Rate 16 02/19/25 09:19 Blood Pressure 116/88 02/19/25 09:19 Pulse Oximetry 97 02/19/25 09:19 Oxygen Delivery Method Room Air 02/19/25 09:19 Temperature 97.8 F 02/19/25 09:19 Pulse Rate 82 02/19/25 09:19 Respiratory Rate 16 02/19/25 09:19 Blood Pressure 116/88 02/19/25 09:19 Pulse Oximetry 97 02/19/25 09:19 Oxygen Delivery Method Room Air 02/19/25 09:19 Medications Administered Medications: Discontinued Medications Generic Name Dose Route Start Last Admin Trade Name Freq PRN Reason Stop Dose Admin Sodium Chloride 1,000 mls @ 6,000 mls/hr 02/19/25 09:45 02/19/25 10:35 0.9 % Sodium Chloride 1000 Ml IV 02/19/25 09:54 Infused .Q10M RENEA Infusion Medical Decision Making MDM Narrative Medical decision making narrative: [age] year white male with a history of 3 small-bowel obstructions with a n exploratory laparotomy and incidental appendectomy. He presents with couple day history of similar symptoms to a small-bowel obstruction. He is still passing minimal flatus. He did have a bowel movement yesterday. He does feel the distention has gotten better but his pain continues. Although at this time he does not require any pain medications reports his pain as a 2/10. At this point we will do labs, IV fluid, CT scan with IV contrast of his abdomen pelvis. Surgical consult as needed. Keep NPO at this time. Rule out small-bowel obstruction, rule out colitis or in intestinal infection. Addendum 10:51 a.m. the patient has a CT scan looks unremarkable, labs look reassuring, he feels actually better. Observation light diet today recheck as needed. Lab Data Labs: Lab Results 02/19/25 Range/Units 09:37 WBC 4.60 (4.50-11.00) K/uL RBC 5.64 (4.30-5.90) m/uL Hgb 16.1 (13.5-17.5) gm/dL Hct 48.0 (37.0-53.0) % MCV 85 (80-100) fL MCH 29 (26-34) pg MCHC 34 (32-36) gm/dL RDW Coeff of Ga 12.5 (11.5-15.5) % Plt Count 215 (140-440) K/uL Neut % (Auto) 51.8 (42.0-72.0) % Lymph % (Auto) 36.7 (20-44) % Emanuel % (Auto) 10.2 (0.0-11.0) % Eos % (Auto) 0.7 (0.0-7.0) % Baso % (Auto) 0.4 (0.0-3.0) % Neut # (Auto) 2.38 (1.7-7.0) K/uL Lymph # (Auto) 1.69 (0.90-2.90) K/uL Emanuel # (Auto) 0.50 (0.00-0.90) K/UL Eos # (Auto) 0.03 (0.00-0.50) K/uL Baso # (Auto) 0.02 (0.00-0.30) K/uL Abs Immat Gran (auto) 0.01 (0.00-0.30) K/uL Imm/Tot Granulo (auto) 0.2 % Sodium 138 (135-149) mmol/L Potassium 4.4 (3.6-5.1) mmol/L Chloride 102 (96-114) mmol/L Carbon Dioxide 31 (20-32) mmol/L Anion Gap 5 L (7-15) mEq/L BUN 20 (5-24) mg/dL Creatinine 1.1 (0.5-1.5) mg/dL Estimated Creat Clear 82.73 Estimated GFR 91 ml/min Glucose 93 (60-115) mg/dL Calcium 9.6 (8.4-10.6) mg/dL Total Bilirubin 0.5 (0.1-1.5) mg/dL Direct Bilirubin 0.1 (0.0-0.5) mg/dL AST 33 (12-35) U/L ALT 21 (4-50) U/L Alkaline Phosphatase 58 (40-150) U/L C-Reactive Protein < 0.5 L (0.5-1.0) mg/dL Total Protein 7.4 (6.0-8.3) g/dL Albumin 4.6 (3.3-5.0) g/dL Amylase 76 (18-89) U/L Discharge Plan Discharge Clinical Impression: Abdominal pain Patient Disposition: Home, Self-Care Condition: Improved Instructions: Abdominal Pain (ED) Activity Level: No Restrictions Discharge Diet: Clear Liquid Diet Detail: Advance diet as tolerated over the next day or 2 Prescriptions: No Action No Known Home Medications Follow Up/Referrals: Jaciel Hwang MD [Primary Care Provider, Internal Medicine] Stand Alone Forms: [employer] Info Instructions
[2025-02-19 10:10] LABS: Hematocrit 48.0 % (37.0-53.0); Hemoglobin* 16.1 gm/dL (13.5-17.5); Immature Granulocytes Abs Auto 0.01 K/uL (0.00-0.30); Immature Granulocytes Pct Auto 0.2 %; Lymphocytes Absolute Auto 1.69 K/uL (0.90-2.90); Mean Corpuscular HGB Conc 34 gm/dL (32-36); Mean Corpuscular Hemoglobin 29 pg (26-34); Mean Corpuscular Volume 85 fL (80-100); RDW Coefficient of Variation % 12.5 % (11.5-15.5); Red Blood Count 5.64 m/uL (4.30-5.90); White Blood Count* 4.60 K/uL (4.50-11.00)
[2025-02-19 10:23] LABS: Albumin* 4.6 g/dL (3.3-5.0); Chloride* 102 mmol/L (96-114); Potassium* 4.4 mmol/L (3.6-5.1); Sodium* 138 mmol/L (135-149)
[2025-02-19 10:26] LABS: Alanine Aminotransferase* 21 U/L (4-50); Alkaline Phosphatase* 58 U/L (40-150); Anion Gap 5 mEq/L (7-15); Aspartate Amino Transferase* 33 U/L (12-35); Bilirubin Direct* 0.1 mg/dL (0.0-0.5); Bilirubin Total* 0.5 mg/dL (0.1-1.5); Blood Urea Nitrogen* 20 mg/dL (5-24); Carbon Dioxide* 31 mmol/L (20-32); Creatinine* 1.1 mg/dL (0.5-1.5); Est. Creatinine Clearance* 82.73; Estimated Glomerular Filt Rate 91 ml/min; Total Protein* 7.4 g/dL (6.0-8.3)
[2025-02-19 10:27] LABS: Calcium* 9.6 mg/dL (8.4-10.6); Glucose* 93 mg/dL (60-115)
[2025-02-19 10:29] LABS: Slide Review Reflex No
== END 2025-02-19 11:31 | disposition home or self-care (01) ==
PROVIDERS: Emergency Provider Family Medicine; PCP Internal Medicine
DX: R10.9 Unspecified abdominal pain (principal)
CPT/HCPCS: 36415; 74177; 80048; 80076; 82150; 85025; 86140; 99284; J7030; Q9967

== ENCOUNTER 2025-02-23 13:31 | Outpatient (CLI) | payer OTHER, SELFPAY | END 2025-02-23 13:32 | disposition home or self-care (01) | PROVIDERS: PCP Internal Medicine; Visit Provider Family Medicine | DX: R10.9 Unspecified abdominal pain (principal) | CPT/HCPCS: 82784; 84443; 85651; 86038; 86231; 86258; 86364; 86431 ==